=== PATIENT | female | born 1975 | race Caucasian/White ===

== ENCOUNTER 2019-01-02 14:39 | Emergency (ER) | payer OTHER ==
[2016-08-29 14:42] VITALS: BP 140/79
[~2019-01-02] VITALS: Ht 162.6 cm; Wt 107.0 kg
[~2019-01-02 14:39] MED LIST: ACYC200C PO; ALBU2.5V8 IH; ALBU2.5V8 INH; ARIP5TAB13 PO; ASPI325T8 PO; BUDE10.2 IH; BUPR150T15 PO; BUPR300T3 PO; CHOL10002 PO; CLON1TAB11 PO; DICL50TA4 PO; DOCU100C53 PO; EMPA10TA PO; ENOX150D3 SQ; ENOX40DI SQ; ESZO3TAB28 PO; FENO160T PO; FLUT100D IH; GABA600T7 PO; GABA800T5 PO; GLIP10TA13 PO; HYDR-2769 PO; HYDR25TA PO; LEVO112T4 PO; LEVO500T59 PO; LISI-334 PO; METO-239 PO; MONT10TA6 PO; OXYC-316 PO; OXYC1TAB19 PO; PANT40TA5 PO; PARO40TA3 PO; PRAM0.255 PO; PRAZ1CAP2 PO; PRAZ2CAP2 PO; PRED-220 PO; PREG150C PO; PREG50CA PO; PROM25TA10 PO; RIVA10TA PO; RIVA20TA2 PO; SIMV10TA3 PO; TIZA4TAB PO; TRAZ-86 PO; VALA10005 PO; VITA1TAB19 PO; VITA200C28 PO; WARF-31 PO; ZOLP12.52 PO; ZONI100C PO
[2019-01-02 15:30] LABS: BASO # 0.1 x10^3/uL (0.0-0.2); BASO % 1 % (0-3); EOS # 0.2 x10^3/uL (0.0-0.7); EOS % 2 % (0-3); HEMATOCRIT 44.6 % (36.0-47.0); HEMOGLOBIN 15.1 g/dL (12.0-15.5); LYMPH # 3.2 x10^3/uL (1.0-4.8); LYMPH % 35 % (24-48); MEAN CORPUSCULAR HEMOGLOBIN 29 pg (25-35); MEAN CORPUSCULAR HGB CONC 34 g/dL (31-37); MEAN CORPUSCULAR VOLUME 86 fL (79-100); MONO # 0.7 x10^3/uL (0.0-1.1); MONO % 7 % (0-9); NEUT % 55 % (31-73); PLATELET COUNT 309 x10^3/uL (140-400); RED BLOOD COUNT 5.18 x10^6/uL (3.50-5.40); RED CELL DISTRIBUTION WIDTH 14.4 % (11.5-14.5)
--- NOTE | 2019-01-02 15:35 | PHYS DOC ---
Past Medical History Past Medical History: Anxiety, Asthma, Depression, Diabetes-Type II, DVT, Fibromyalgia, GERD, High Cholesterol, Hypertension, Hypothyroid, Kidney Stone, Migraines, MRSA Additional Past Medical Histor: ovarian cyst,mitral valve prolapse,PTSD, PANIC ATTACKS,PE'S, RLS, tachycard Past Surgical History: Cholecystectomy, Hysterectomy, Tonsillectomy, Other Additional Past Surgical Histo: NONMALIGMENT TUMOR BACK OF HEAD REMOVED, OVARIAN CYSTS,Knee surgeries Alcohol Use: None Drug Use: None Adult General Chief Complaint Chief Complaint: CHEST PAIN HPI HPI Patient is a 43 year old female presents to ER today for evaluation of left- sided chest pain started about 1.5 hour ago she was driving. Patient says the pain is sharp, associated with some trouble breathing. Patient said she had history of PE 2 years ago AND the pain is similar to her previous symptom of PE. Patient is on Lovenox for her history of PE. She denies any history of recent travel, no recent operation. Patient is not a smoker, she is not on any control medication. Patient had no history of coronary artery disease. Review of Systems Review of Systems Constitutional: Denies fever or chills [] Eyes: Denies change in visual acuity, redness, or eye pain [] HENT: Denies nasal congestion or sore throat [] Respiratory: Denies cough or POSITIVE FOR Shortness of breath [] Cardiovascular: No additional information not addressed in HPI [] GI: Denies abdominal pain, nausea, vomiting, bloody stools or diarrhea [] : Denies dysuria or hematuria [] Musculoskeletal: Denies back pain or joint pain [] Integument: Denies rash or skin lesions [] Neurologic: Denies headache, focal weakness or sensory changes [] Endocrine: Denies polyuria or polydipsia [] All other systems were reviewed and found to be within normal limits, except as documented in this note. Current Medications Current Medications Current Medications Medications (Trade) Dose Ordered Sig/Poncho Start Time Stop Time Status Last Admin Dose Admin Info (CONTRAST GIVEN -- Rx MONITORING) 1 each PRN DAILY PRN 01/02/19 16:30 01/04/19 16:29 Iohexol (Omnipaque 350 Mg/ml) 100 ml 1X ONCE 01/02/19 16:30 01/02/19 16:31 DC 01/02/19 16:32 100 ML Allergies Allergies Allergies Coded Allergies Type Severity Reaction Last Updated Verified Sulfa (Sulfonamide Antibiotics) Allergy Severe SWELLING OF MOUTH AND HIVES Yes shellfish derived Allergy Severe MOUTH SWELLING AND HIVES 11/04/15 Yes doxycycline Allergy Intermediate HIVES 11/04/15 Yes duloxetine Adverse Reaction Intermediate HYPERTENSION/TACHYCARDIA 11/04/15 Yes hydromorphone Adverse Reaction Intermediate NAUSEA AND VOMITING 11/04/15 Yes imipramine Adverse Reaction Intermediate IRREGULAR HEART BEAT 11/04/15 Yes metformin Adverse Reaction Intermediate ACIDOSIS 02/27/16 Yes nalbuphine Adverse Reaction Intermediate EPISTAXIS 11/04/15 Yes propoxyphene Adverse Reaction Intermediate NAUSEA AND VOMITING 11/04/15 Yes dabigatran etexilate Adverse Reaction Mild Nausea 08/27/16 Yes rivaroxaban Adverse Reaction Mild Nausea and Vomiting 08/27/16 Yes warfarin Adverse Reaction Mild Nausea 08/27/16 Yes Physical Exam Physical Exam Constitutional: Well developed, well nourished, no acute distress, non-toxic appearance. [] HENT: Normocephalic, atraumatic, bilateral external ears normal, oropharynx moist, no oral exudates, nose normal. [] Eyes: PERRLA, EOMI, conjunctiva normal, no discharge. [] Neck: Normal range of motion, no tenderness, supple, no stridor. [] Cardiovascular:Heart rate regular rhythm, no murmur [] Lungs & Thorax: Bilateral breath sounds clear to auscultation [] Abdomen: Bowel sounds normal, soft, no tenderness, no masses, no pulsatile masses. [] Skin: Warm, dry, no erythema, no rash. [] Back: No tenderness, no CVA tenderness. [] Extremities: No tenderness, no cyanosis, no clubbing, ROM intact, no edema. [] Neurologic: Alert and oriented X 3, normal motor function, normal sensory function, no focal deficits noted. [] Psychologic: Affect normal, judgement normal, mood normal. [] Current Patient Data Vital Signs Vital Signs Date Time Temp Pulse Resp B/P (MAP) Pulse Ox O2 Delivery O2 Flow Rate FiO2 01/02/19 14:46 98.7 88 17 135/95 (108) 95 Room Air 98.7 Lab Values Laboratory Tests Test 01/02/19 14:40 01/02/19 16:15 3/19/19 16:21 White Blood Count 9.0 x10^3/uL (4.0-11.0) Red Blood Count 5.18 x10^6/uL (3.50-5.40) Hemoglobin 15.1 g/dL (12.0-15.5) Hematocrit 44.6 % (36.0-47.0) Mean Corpuscular Volume 86 fL (79-100) Mean Corpuscular Hemoglobin 29 pg (25-35) Mean Corpuscular Hemoglobin Concent 34 g/dL (31-37) Red Cell Distribution Width 14.4 % (11.5-14.5) Platelet Count 309 x10^3/uL (140-400) Neutrophils (%) (Auto) 55 % (31-73) Lymphocytes (%) (Auto) 35 % (24-48) Monocytes (%) (Auto) 7 % (0-9) Eosinophils (%) (Auto) 2 % (0-3) Basophils (%) (Auto) 1 % (0-3) Neutrophils # (Auto) 5.0 x10^3uL (1.8-7.7) Lymphocytes # (Auto) 3.2 x10^3/uL (1.0-4.8) Monocytes # (Auto) 0.7 x10^3/uL (0.0-1.1) Eosinophils # (Auto) 0.2 x10^3/uL (0.0-0.7) Basophils # (Auto) 0.1 x10^3/uL (0.0-0.2) Prothrombin Time 13.0 SEC (11.7-14.0) Prothrombin Time INR 1.0 (0.8-1.1) PTT 29 SEC (24-38) D-Dimer (Kirstie) 0.37 ug/mlFEU (0.00-0.50) Sodium Level 143 mmol/L (136-145) Potassium Level 3.9 mmol/L (3.5-5.1) Chloride Level 105 mmol/L (98-107) Carbon Dioxide Level 26 mmol/L (21-32) Anion Gap 12 (6-14) Blood Urea Nitrogen 17 mg/dL (7-20) Creatinine 0.9 mg/dL (0.6-1.0) Estimated GFR (Cockcroft-Gault) 67.7 BUN/Creatinine Ratio 19 (6-20) Glucose Level 214 mg/dL (70-99) H Calcium Level 9.2 mg/dL (8.5-10.1) Magnesium Level 1.8 mg/dL (1.8-2.4) Total Bilirubin 0.3 mg/dL (0.2-1.0) Aspartate Amino Transferase (AST) 22 U/L (15-37) Alanine Aminotransferase (ALT) 35 U/L (14-59) Alkaline Phosphatase 122 U/L (46-116) H Creatine Kinase 125 U/L (26-192) Creatine Kinase MB (Mass) 0.6 ng/mL (0.0-3.6) Creatine Kinase MB Relative Index 0.5 % (0-4) Troponin I Quantitative < 0.017 ng/mL (0.000-0.055) LX-Kdh-H-Type Natriuretic Peptide 19 pg/mL (0-124) Total Protein 8.4 g/dL (6.4-8.2) H Albumin 3.6 g/dL (3.4-5.0) Albumin/Globulin Ratio 0.8 (1.0-1.7) L Lipase 143 U/L (73-393) Urine Collection Type Unknown Urine Color Yellow Urine Clarity Clear Urine pH 5.0 Urine Specific [place] 1.025 Urine Protein Negative mg/dL (NEG-TRACE) Urine Glucose (UA) Negative mg/dL (NEG) Urine Ketones (Stick) Negative mg/dL (NEG) Urine Blood Negative (NEG) Urine Nitrite Negative (NEG) Urine Bilirubin Negative (NEG) Urine Urobilinogen Dipstick 0.2 mg/dL (0.2 mg/dL) Urine Leukocyte Esterase Negative (NEG) Urine RBC 1-2 /HPF (0-2) Urine WBC 5-10 /HPF (0-4) Urine Squamous Epithelial Cells Few /LPF Urine Bacteria Few /HPF (0-FEW) Urine Mucus Marked /LPF POC Urine HCG, Qualitative Hcg negative (Negative) Laboratory Tests 01/02/19 14:40 Laboratory Tests 01/02/19 14:40 EKG EKG EKG was read by this physician at 1450, rate of 79 BPM, SINUS RHYTHM, NO STEMI. [] Radiology/Procedures Radiology/Procedures [][facility] [address] [place], [place] [id number] IMAGING REPORT Signed PATIENT: NISHANT ESTRADA ACCOUNT: [id number] : 1975 LOCATION: ER AGE: 43 SEX: F EXAM STATUS: REG ER ORD. PHYSICIAN: RODNEY PARTIDA DO REASON: CHEST PAIN PROCEDURE: PORTABLE CHEST 1V PORTABLE CHEST 1V Clinical Indication: CHEST PAIN Comparison: AP chest August 27, 2016. Findings: The cardiomediastinal silhouette is normal. Lungs are clear. There is no pneumothorax. No pleural effusion is appreciated. No acute bone abnormality. IMPRESSION: No acute cardiopulmonary process. Electronically signed by: Kamari Barry MD (01/02/2019 3:46 PM) [id number] DICTATED and SIGNED BY: KAMARI BARRY MD DATE: 01/02/19 1546 Course & Med Decision Making Course & Med Decision Making Pertinent Labs and Imaging studies reviewed. (See chart for details) [] Dragon Disclaimer Dragon Disclaimer This electronic medical record was generated, in whole or in part, using a voice recognition dictation system. Departure Departure Impression: Primary Impression: Chest pain Disposition: HOME, SELF-CARE Condition: STABLE Referrals: NASIMA YUAN APRN (PCP) FOLLOW UP WITH YOUR DOCTOR IN 2 DAYS FOR REEVALUATION Patient Instructions: Chest Pain (Nonspecific) RODNEY PARTIDA DO Jan 02, 2019 15:35
[2019-01-02 15:38] LABS: CALCIUM 9.2 mg/dL (8.5-10.1); CREATININE 0.9 mg/dL (0.6-1.0); GFR 67.7; POTASSIUM 3.9 mmol/L (3.5-5.1)
[2019-01-02 15:44] LABS: ALBUMIN 3.6 g/dL (3.4-5.0); ALBUMIN/GLOBULIN RATIO 0.8 (1.0-1.7); MAGNESIUM 1.8 mg/dL (1.8-2.4); TOTAL BILIRUBIN 0.3 mg/dL (0.2-1.0); TOTAL PROTEIN 8.4 g/dL (6.4-8.2)
[2019-01-02 15:45] LABS: D-DIMER 0.37 ug/mlFEU (0.00-0.50)
--- NOTE | 2019-01-02 15:49 | RAD ---
PORTABLE CHEST 1V Clinical Indication: CHEST PAIN Comparison: AP chest August 27, 2016. Findings: The cardiomediastinal silhouette is normal. Lungs are clear. There is no pneumothorax. No pleural effusion is appreciated. No acute bone abnormality. IMPRESSION: No acute cardiopulmonary process. Electronically signed by: Kamari Barry MD (01/02/2019 3:46 PM) [id number]
[2019-01-02 16:29] LABS: BILIRUBIN,URINE NEGATIVE (NEG); CLARITY,URINE CLEAR; COLOR,URINE YELLOW; NITRITE,URINE NEGATIVE (NEG); PROTEIN,URINE NEGATIVE (NEG-TRACE); UROBILINOGEN,URINE 0.2 mg/dL (0.2 mg/dL)
[2019-01-02] MEDS ORDERED: CONTRAST GIVEN. MC PRN (16:30)
[2019-01-02] MEDS: IOHEXOL 350 MG/ML 100 ML VIAL. IV ONE (16:32)
[2019-01-02 16:48] LABS: BACTERIA,URINE FEW /HPF (0-FEW); SQUAMOUS EPITHELIAL CELL,UR FEW /LPF
--- NOTE | 2019-01-02 16:59 | RAD ---
CTA OF THE CHEST WITH AND WITHOUT CONTRAST Clinical indications: Chest pain and shortness of air. History of recurrent pulmonary embolism. Technique: Noncontrast axial localizer was performed. After IV infusion of 100 cc of Omnipaque 350, helical CT scanning of the chest was performed using the CT pulmonary embolism protocol. A coronal MIP reconstruction was generated. PQRS compliance Statement One or more of the following individualized dose reduction techniques were utilized for this study: 1. Automated exposure control 2. Adjustment of the mA and/or kV according to patient size 3. Use of iterative reconstruction technique Comparison: Chest CTA dated August 27, 2016. Findings: No pulmonary embolism is evident. There is ectasia of the ascending aorta measuring up to 4.2 cm in greatest dimension. No intimal flap or dissection is seen otherwise. This is stable. The heart size is within normal limits. No pericardial effusion is seen. No enlarged thoracic lymphadenopathy is evident. No pleural effusion or pneumothorax is seen. No lung mass or consolidative lung infiltrate is seen. The proximal bronchial tree is patent. No lytic process is seen. No adrenal mass is evident. IMPRESSION: No pulmonary embolism. No acute lung infiltrate. Electronically signed by: Josh Gonzales MD (01/02/2019 4:56 PM) [place] [id number]
--- NOTE | 2019-01-03 06:06 | EKG ---
[facility] [address] [place] [address] Test Date: 2019-01-02 Test Time: 14:49:42 Pat Name: NISHANT ESTRADA Department: Room: Gender: F Cardiac Monitor: : 1975 Requested By: RODNEY PARTIDA Order Number: [id number] Reading MD: Sammy Lopez MD Measurements Intervals [place] Rate: 79 P: 16 MI: 164 QRS: -11 QRSD: 88 T: 27 QT: 394 QTc: 453 Interpretive Statements SINUS RHYTHM Electronically Signed On 01-05-2019 16:10:26 CDT by Sammy Lopez MD
== END 2019-01-02 18:20 | disposition home or self-care (01) ==
LOC: ER 14:39
DX: R07.89 Other chest pain (principal); F41.9 Anxiety disorder, unspecified; J45.909 Unspecified asthma, uncomplicated; F32.9 Major depressive disorder, single episode, unspecified; E11.9 Type 2 diabetes mellitus without complications; K21.9 Gastro-esophageal reflux disease without esophagitis; E78.00 Pure hypercholesterolemia, unspecified; I10 Essential (primary) hypertension; E03.9 Hypothyroidism, unspecified; G43.909 Migraine, unspecified, not intractable, without status migrainosus; Z90.49 Acquired absence of other specified parts of digestive tract; Z90.710 Acquired absence of both cervix and uterus; Z90.89 Acquired absence of other organs; Z86.718 Personal history of other venous thrombosis and embolism; Z87.442 Personal history of urinary calculi; Z88.5 Allergy status to narcotic agent; Z88.8 Allergy status to other drugs, medicaments and biological substances; Z88.2 Allergy status to sulfonamides; Z91.013 Allergy to seafood
CPT/HCPCS: 36415; 71045; 71275; 80053; 81001; 81025; 82553; 83690; 83735; 83880; 84484; 85025; 85379; 85610; 85730; 87086; 93005; 99284; Q9967

== ENCOUNTER 2019-01-12 18:20 | Inpatient (IN) | payer OTHER ==
[~2019-01-12] VITALS: Ht 162.6 cm; Wt 103.4 kg
[2019-01-12] MEDS ORDERED: DEXTROSE 50% 25 GM / 50ML DISP.SYRIN. IV PRN (19:00)
[2019-01-12] MEDS ORDERED: ONDANSETRON PF 4 MG/2 ML VIAL. IV PRN (19:00)
[2019-01-12] MEDS ORDERED: IV NORMAL SALINE 1000ML BAG 1,000 ML IV ONE (19:00)
[2019-01-12] MEDS ORDERED: ASPIRIN 325 MG TABLET PO ONE (19:00)
[2019-01-12 19:07] LABS: BASO # 0.1 x10^3/uL (0.0-0.2); BASO % 1 % (0-3); EOS # 0.3 x10^3/uL (0.0-0.7); EOS % 3 % (0-3); HEMATOCRIT 44.1 % (36.0-47.0); HEMOGLOBIN 14.7 g/dL (12.0-15.5); LYMPH # 3.6 x10^3/uL (1.0-4.8); LYMPH % 41 % (24-48); MEAN CORPUSCULAR HEMOGLOBIN 29 pg (25-35); MEAN CORPUSCULAR HGB CONC 33 g/dL (31-37); MEAN CORPUSCULAR VOLUME 86 fL (79-100); MONO # 0.6 x10^3/uL (0.0-1.1); MONO % 7 % (0-9); NEUT # 4.2 x10^3uL (1.8-7.7); NEUT % 48 % (31-73); PLATELET COUNT 283 x10^3/uL (140-400); RED BLOOD COUNT 5.15 x10^6/uL (3.50-5.40); RED CELL DISTRIBUTION WIDTH 14.5 % (11.5-14.5); WHITE BLOOD COUNT 8.7 x10^3/uL (4.0-11.0)
--- NOTE | 2019-01-12 19:22 | PHYS DOC ---
Past Medical History Past Medical History: Anxiety, Asthma, Depression, Diabetes-Type II, DVT, Fibromyalgia, GERD, High Cholesterol, Hypertension, Hypothyroid, Kidney Stone, Migraines, MRSA Additional Past Medical Histor: ovarian cyst,mitral valve prolapse,PTSD, PANIC ATTACKS,PE'S, RLS, tachycard Past Surgical History: Cholecystectomy, Hysterectomy, Tonsillectomy, Other Additional Past Surgical Histo: NONMALIGMENT TUMOR BACK OF HEAD REMOVED, OVARIAN CYSTS,Knee surgeries Alcohol Use: None Drug Use: None Adult General Chief Complaint Chief Complaint: CHEST PAIN HPI HPI Patient is a 43 year old [f__sex] who presents with [] Review of Systems Review of Systems Constitutional: Denies fever or chills [] Eyes: Denies change in visual acuity, redness, or eye pain [] HENT: Denies nasal congestion or sore throat [] Respiratory: Denies cough or shortness of breath [] Cardiovascular: No additional information not addressed in HPI [] GI: Denies abdominal pain, nausea, vomiting, bloody stools or diarrhea [] : Denies dysuria or hematuria [] Musculoskeletal: Denies back pain or joint pain [] Integument: Denies rash or skin lesions [] Neurologic: Denies headache, focal weakness or sensory changes [] Endocrine: Denies polyuria or polydipsia [] All other systems were reviewed and found to be within normal limits, except as documented in this note. Current Medications Current Medications Current Medications Medications (Trade) Dose Ordered Sig/Poncho Start Time Stop Time Status Last Admin Dose Admin Aspirin (Aide Aspirin) 325 mg 1X ONCE 01/12/19 19:00 01/12/19 19:01 DC 01/12/19 19:18 325 MG Dextrose (Dextrose 50%-Water Syringe) 12.5 gm PRN Q15MIN PRN 01/12/19 19:00 Fentanyl Citrate (Fentanyl 2ml Vial) 50 mcg PRN Q2HR PRN 01/12/19 19:00 01/12/19 20:33 50 MCG Ondansetron HCl (Zofran) 4 mg PRN Q8HRS PRN 01/12/19 19:00 01/13/19 18:59 Sodium Chloride 1,000 ml @ 1,000 mls/hr 1X ONCE 01/12/19 19:00 01/12/19 19:59 DC 01/12/19 19:18 1,000 MLS/HR Allergies Allergies Allergies Coded Allergies Type Severity Reaction Last Updated Verified Sulfa (Sulfonamide Antibiotics) Allergy Severe SWELLING OF MOUTH AND HIVES Yes shellfish derived Allergy Severe MOUTH SWELLING AND HIVES 11/04/15 Yes doxycycline Allergy Intermediate HIVES 11/04/15 Yes duloxetine Adverse Reaction Intermediate HYPERTENSION/TACHYCARDIA 11/04/15 Yes hydromorphone Adverse Reaction Intermediate NAUSEA AND VOMITING 11/04/15 Yes imipramine Adverse Reaction Intermediate IRREGULAR HEART BEAT 11/04/15 Yes metformin Adverse Reaction Intermediate ACIDOSIS 02/27/16 Yes nalbuphine Adverse Reaction Intermediate EPISTAXIS 11/04/15 Yes propoxyphene Adverse Reaction Intermediate NAUSEA AND VOMITING 11/04/15 Yes dabigatran etexilate Adverse Reaction Mild Nausea 08/27/16 Yes rivaroxaban Adverse Reaction Mild Nausea and Vomiting 08/27/16 Yes warfarin Adverse Reaction Mild Nausea 08/27/16 Yes Physical Exam Physical Exam Constitutional: Well developed, well nourished, no acute distress, non-toxic appearance. [] HENT: Normocephalic, atraumatic, bilateral external ears normal, oropharynx moist, no oral exudates, nose normal. [] Eyes: PERRLA, EOMI, conjunctiva normal, no discharge. [] Neck: Normal range of motion, no tenderness, supple, no stridor. [] Cardiovascular:Heart rate regular rhythm, no murmur [] Lungs & Thorax: Bilateral breath sounds clear to auscultation [] Abdomen: Bowel sounds normal, soft, no tenderness, no masses, no pulsatile masses. [] Skin: Warm, dry, no erythema, no rash. [] Back: No tenderness, no CVA tenderness. [] Extremities: No tenderness, no cyanosis, no clubbing, ROM intact, no edema. [] Neurologic: Alert and oriented X 3, normal motor function, normal sensory function, no focal deficits noted. [] Psychologic: Affect normal, judgement normal, mood normal. [] Current Patient Data Vital Signs Vital Signs Date Time Temp Pulse Resp B/P (MAP) Pulse Ox O2 Delivery O2 Flow Rate FiO2 01/12/19 19:04 87 19 205/88 (127) 98 Room Air 01/12/19 18:20 97.6 97.6 Lab Values Laboratory Tests Test 01/12/19 18:35 White Blood Count 8.7 x10^3/uL (4.0-11.0) Red Blood Count 5.15 x10^6/uL (3.50-5.40) Hemoglobin 14.7 g/dL (12.0-15.5) Hematocrit 44.1 % (36.0-47.0) Mean Corpuscular Volume 86 fL (79-100) Mean Corpuscular Hemoglobin 29 pg (25-35) Mean Corpuscular Hemoglobin Concent 33 g/dL (31-37) Red Cell Distribution Width 14.5 % (11.5-14.5) Platelet Count 283 x10^3/uL (140-400) Neutrophils (%) (Auto) 48 % (31-73) Lymphocytes (%) (Auto) 41 % (24-48) Monocytes (%) (Auto) 7 % (0-9) Eosinophils (%) (Auto) 3 % (0-3) Basophils (%) (Auto) 1 % (0-3) Neutrophils # (Auto) 4.2 x10^3uL (1.8-7.7) Lymphocytes # (Auto) 3.6 x10^3/uL (1.0-4.8) Monocytes # (Auto) 0.6 x10^3/uL (0.0-1.1) Eosinophils # (Auto) 0.3 x10^3/uL (0.0-0.7) Basophils # (Auto) 0.1 x10^3/uL (0.0-0.2) Prothrombin Time 12.0 SEC (11.7-14.0) Prothrombin Time INR 0.9 (0.8-1.1) Sodium Level 144 mmol/L (136-145) Potassium Level 3.9 mmol/L (3.5-5.1) Chloride Level 106 mmol/L (98-107) Carbon Dioxide Level 26 mmol/L (21-32) Anion Gap 12 (6-14) Blood Urea Nitrogen 13 mg/dL (7-20) Creatinine 0.8 mg/dL (0.6-1.0) Estimated GFR (Cockcroft-Gault) 77.6 BUN/Creatinine Ratio 16 (6-20) Glucose Level 170 mg/dL (70-99) H Calcium Level 9.1 mg/dL (8.5-10.1) Magnesium Level 1.8 mg/dL (1.8-2.4) Total Bilirubin 0.2 mg/dL (0.2-1.0) Aspartate Amino Transferase (AST) 17 U/L (15-37) Alanine Aminotransferase (ALT) 46 U/L (14-59) Alkaline Phosphatase 118 U/L (46-116) H Creatine Kinase 99 U/L (26-192) Creatine Kinase MB (Mass) < 0.5 ng/mL (0.0-3.6) Creatine Kinase MB Relative Index % (0-4) Troponin I Quantitative < 0.017 ng/mL (0.000-0.055) GB-[id number]-Type Natriuretic Peptide 97 pg/mL (0-124) Total Protein 8.0 g/dL (6.4-8.2) Albumin 3.4 g/dL (3.4-5.0) Albumin/Globulin Ratio 0.7 (1.0-1.7) L Lipase 125 U/L (73-393) Laboratory Tests 01/12/19 18:35 Laboratory Tests 01/12/19 18:35 EKG EKG @1829 Sinus rhythm with baseline artifact at 84bpm, NO ST elevation, Radiology/Procedures Radiology/Procedures [] Course & Med Decision Making Course & Med Decision Making Pertinent Labs and Imaging studies reviewed. (See chart for details) [] Dragon Disclaimer Dragon Disclaimer This electronic medical record was generated, in whole or in part, using a voice recognition dictation system. Departure Departure Impression: Primary Impression: Chest pain Disposition: 09 ADMITTED INPATIENT Admitting Physician: Malena Guzman Condition: STABLE Referrals: UNKNOWN PCP NAME (PCP) Problem Qualifiers Primary Impression: Chest pain Chest pain type: unspecified Qualified Codes: R07.9 - Chest pain, unspecified KATYA PINK DO Jan 12, 2019 19:22
[2019-01-12 19:32] LABS: CALCIUM 9.1 mg/dL (8.5-10.1); CREATININE 0.8 mg/dL (0.6-1.0); GFR 77.6; POTASSIUM 3.9 mmol/L (3.5-5.1)
[2019-01-12 19:37] LABS: ALBUMIN 3.4 g/dL (3.4-5.0); ALBUMIN/GLOBULIN RATIO 0.7 (1.0-1.7); MAGNESIUM 1.8 mg/dL (1.8-2.4); TOTAL BILIRUBIN 0.2 mg/dL (0.2-1.0)
[2019-01-12 19:38] LABS: CREATINE KINASE 99 U/L (26-192)
--- NOTE | 2019-01-12 20:18 | RAD ---
EXAM: PA and Lateral Views of the Chest DATE: 01/12/2019 6:57 PM INDICATION: Chest pain COMPARISON: No Prior FINDINGS: The heart is not enlarged. Mediastinal and hilar contours are normal. No focal parenchymal airspace opacity. No pleural effusion or pneumothorax. IMPRESSION: 1. No radiographic evidence for acute cardiopulmonary process. Electronically signed by: Jamey Licona MD (01/12/2019 8:15 PM) [facility]
[2019-01-12] MEDS: fentaNYL PF VIAL 100 MCG/2 ML VIAL IV PRN (20:33)
[2019-01-12 20:45] VITALS: BP 202/86
[2019-01-12] MEDS ORDERED: PANT20TA2 PO (21:33)
[2019-01-12] MEDS ORDERED: GABA-689 PO (21:33)
[2019-01-12] MEDS ORDERED: LISI-334 PO (21:34)
[2019-01-12] MEDS ORDERED: ZONI100C PO (21:34)
[2019-01-12] MEDS ORDERED: INSU100I13 SQ (21:34)
[2019-01-12] MEDS ORDERED: INSU100C4 SQ (21:35)
[2019-01-12] MEDS ORDERED: PROP80TA PO (21:36)
[2019-01-12] MEDS ORDERED: GABA-585 PO (21:37)
[2019-01-12] MEDS ORDERED: GABAPENTIN 100 MG CAPSULE. PO PRN (22:00)
[2019-01-12] MEDS ORDERED: METOPROLOL TARTRATE 5 MG/5 ML VIAL. IVP ONE (22:30)
[2019-01-12] MEDS: hydrOXYzine PAMOATE 25 MG CAPSULE PO SCH (22:40)
[2019-01-12] MEDS: SIMVASTATIN 10 MG TABLET PO SCH (22:40)
[2019-01-12] MEDS: ZOLPIDEM 5 MG TABLET. PO PRN (22:40)
[2019-01-12] MEDS: GABAPENTIN 400 MG CAPSULE. PO SCH (22:40)
[2019-01-12] MEDS: clonazePAM 1 MG TABLET PO SCH (22:40)
[2019-01-12] MEDS: tiZANidine 4 MG TABLET. PO SCH (22:41)
[2019-01-12] MEDS: PRAZOSIN 1 MG CAPSULE. PO SCH (22:42)
[2019-01-12] MEDS: ZONISAMIDE 100 MG CAPSULE. PO SCH (22:42)
[2019-01-12] MEDS: PROPRANOLOL ER 80 MG CAP.ER.24H. PO SCH (22:43)
[2019-01-12] MEDS: INSULIN GLARGINE 300 UNITS/3 ML INSULN.PEN. SQ SCH (22:45)
--- NOTE | 2019-01-12 23:42 | PDOC1 ---
History and Physical Date of Admission Date of Admission DATE: 01/12/19 TIME: 23:42 Identification/Chief Complaint Chief Complaint chest pain Source Source: Chart review, Patient History of Present Illness History of Present Illness Ms. De Leon presented to the ER for the second time this week for chest pain. She was seen in the ER 1 week ago, CT Angio chest was neg, and troponin neg, and sent home. She now returns 1 week later, and the chest pain is worse. She has left sided chest pain that is pressure more than sharp pain, and the pain radiates to her left arm. She has mult anxiety./depression problems, but that has been managed well by [facility] She has a hx of PE, and is on Lovenox, she reports intolerance to all PO options, She sees Dr. Minaya at [facility] for this. She is worried due to her strong family history of heart problmems, her brother at age 37 from CAD and her mom at age 52, CAD and CVA pain is now 4/10 after pain meds, was 9/10 in the ER Past Medical History Cardiovascular: HTN, Hyperlipidemia, Other Pulmonary: Asthma, Bronchitis, Pulmonary embolus, Pneumonia CENTRAL NERVOUS SYSTEM: Other GI: GERD, Peptic Ulcer disease Heme/Onc: Anemia NOS Hepatobiliary: No pertinent hx Psych: Anxiety, Depression Musculoskeletal: Osteoarthritis Rheumatologic: Fibromyalgia Infectious disease: No pertinent hx Renal/: Other Endocrine: Diabetes Past Surgical History Past Surgical History: Cholecystectomy, Tonsillectomy, Hysterectomy Family History Family History: Diabetes, Heart Disease, High Cholestrol, Hypertension, Stroke Social History Smoke: No ALCOHOL: none Drugs: None Current Problem List Problem List Problems Medical Problems: (1) Chest pain Status: Acute Current Medications Current Medications Current Medications Aspirin (Aide Aspirin) 325 mg 1X ONCE PO Last administered on 01/12/19at 19:18 ; Start 01/12/19 at 19:00; Stop 01/12/19 at 19:01; Status DC Sodium Chloride 1,000 ml @ 1,000 mls/hr 1X ONCE IV Last administered on at 19:18; Start 01/12/19 at 19:00; Stop 01/12/19 at 19:59; Status DC Ondansetron HCl (Zofran) 4 mg PRN Q8HRS PRN IV NAUSEA/VOMITING; Start 01/12/19 at 19:00; Stop 01/13/19 at 18:59 Fentanyl Citrate (Fentanyl 2ml Vial) 50 mcg PRN Q2HR PRN IV PAIN Last administered on 01/12/19at 20:33; Start 01/12/19 at 19:00 Insulin Human Lispro (HumaLOG) 0-5 UNITS TIDWMEALS SQ ; Start 01/13/19 at 08:00 Dextrose (Dextrose 50%-Water Syringe) 12.5 gm PRN Q15MIN PRN IV SEE COMMENTS; Start 01/12/19 at 19:00 Aripiprazole (Abilify) 10 mg DAILY PO ; Start 01/13/19 at 09:00 Aspirin (Aide Aspirin) 325 mg DAILY PO ; Start 01/13/19 at 09:00 Clonazepam (KlonoPIN) 1 mg TID PO Last administered on 01/12/19at 22:40; Start 01/12/19 at 22:30 Enoxaparin Sodium (Lovenox 120mg Syringe) 120 mg QHS SQ Last administered on at 22:43; Start 01/12/19 at 23:00 Gabapentin (Neurontin) 100 mg PRN TID PRN PO NEUROPATHIC PAIN; Start 01/12/19 at 22:00 Gabapentin (Neurontin) 400 mg TID PO Last administered on 01/12/19at 22:40; Start 01/12/19 at 22:30 Insulin Glargine (Lantus) 50 units QHS SQ Last administered on 01/12/19at 22:45 ; Start 01/12/19 at 22:30 Levothyroxine Sodium (Synthroid) 112 mcg DAILY06 PO ; Start 01/13/19 at 06:00 Lisinopril (Prinivil) 20 mg DAILY PO ; Start 01/13/19 at 09:00 Simvastatin (Zocor) 10 mg HS PO Last administered on 01/12/19at 22:40; Start at 22:30 Bupropion HCl (Wellbutrin Xl) 150 mg DAILY PO ; Start 01/13/19 at 09:00 Hydroxyzine Pamoate (Vistaril) 50 mg BID PO Last administered on 01/12/19at 22: 40; Start 01/12/19 at 22:30 Insulin Human Lispro (HumaLOG) 15 units TIDWMEALS SQ ; Start 01/13/19 at 08:00 Pantoprazole Sodium (Protonix) 40 mg DAILYAC PO ; Start 01/13/19 at 07:30 Prazosin HCl (Minipress) 4 mg QHS PO Last administered on 01/12/19at 22:42; Start 01/12/19 at 23:00 Propranolol HCl (Inderal La) 80 mg QHS PO Last administered on 01/12/19 22:43 ; Start 01/12/19 at 23:00 Tizanidine HCl (Zanaflex) 4 mg TID PO Last administered on 01/12/19 22:41; Start 01/12/19 at 22:30 Zolpidem Tartrate (Ambien) 5 mg PRN QHS PRN PO INSOMNIA, MAY REPEAT X1 Last administered on 01/12/19 22:40; Start 01/12/19 at 22:15 Zonisamide (Zonegran) 300 mg QHS PO Last administered on 01/12/19 22:42; Start 01/12/19 at 23:00 Metoprolol Tartrate (Lopressor Vial) 5 mg 1X ONCE IVP Last administered on at 22:46; Start 01/12/19 at 22:30; Stop 01/12/19 at 22:31; Status DC Active Scripts Active Reported Gabapentin (Gabapentin) 100 Mg Capsule 100 Mg PO TID PRN Propranolol Hcl 80 Mg Tablet 80 Mg PO HS Novolog (Insulin Aspart) 100 Unit/1 Ml Cartridge 15 Unit SQ TIDWMEALS Lantus Solostar (Insulin Glargine,Hum.rec.anlog) 100 Unit/1 Ml Insuln.pen 50 Unit SQ QHS Lisinopril 20 Mg Tablet 1 Tab PO DAILY Zonisamide 100 Mg Capsule 300 Mg PO HS Protonix (Pantoprazole Sodium) 20 Mg Tablet.dr 2 Tab PO DAILY Gabapentin (Gabapentin) 400 Mg Capsule 400 Mg PO TID Ambien Cr (Zolpidem Tartrate) 12.5 Mg Tab.mphase 10 Tab PO QHS PRN Aspirin 325 Mg Tablet 1 Tab PO DAILY Enoxaparin Sodium 150 Mg/1 Ml Disp.syrin 120 Mg SQ HS Prazosin Hcl 2 Mg Capsule 2 Cap PO QHS Hydroxyzine Hcl 25 Mg Tablet 2 Tab PO BID Wellbutrin Xl (Bupropion Hcl) 300 Mg Tab.er.24h 150 Mg PO DAILY Abilify (Aripiprazole) 5 Mg Tablet 2 Tab PO DAILY Tizanidine Hcl 4 Mg Tablet 4 Mg PO TID Simvastatin 10 Mg Tablet 10 Mg PO HS Levothyroxine Sodium 112 Mcg Tablet 112 Mcg PO DAILY Clonazepam 1 Mg Tablet 1 Tab PO TID Allergies Allergies: Coded Allergies: Sulfa (Sulfonamide Antibiotics) (Verified Allergy, Severe, SWELLING OF MOUTH AND HIVES, 11/04/15) shellfish derived (Verified Allergy, Severe, MOUTH SWELLING AND HIVES, ) doxycycline (Verified Allergy, Intermediate, HIVES, 11/04/15) duloxetine (Verified Adverse Reaction, Intermediate, HYPERTENSION/ TACHYCARDIA, 11/04/15) hydromorphone (Verified Adverse Reaction, Intermediate, NAUSEA AND VOMITING, 11/04/15) imipramine (Verified Adverse Reaction, Intermediate, IRREGULAR HEART BEAT , 11/04/15) metformin (Verified Adverse Reaction, Intermediate, ACIDOSIS, 02/27/16) nalbuphine (Verified Adverse Reaction, Intermediate, EPISTAXIS, 11/04/15) propoxyphene (Verified Adverse Reaction, Intermediate, NAUSEA AND VOMITING , 11/04/15) dabigatran etexilate (Verified Adverse Reaction, Mild, Nausea, 08/27/16) rivaroxaban (Verified Adverse Reaction, Mild, Nausea and Vomiting, ) warfarin (Verified Adverse Reaction, Mild, Nausea, 08/27/16) ROS General: YES: Fatigue, Malaise; No: Chills, Night Sweats, Appetite, Other PSYCHOLOGICAL ROS: YES: Anxiety; No: Behavioral Disorder, Concentration difficultie, Decreased libido, Depression, Disorientation, Hallucinations, Hostility, Irritablity, Memory difficulties, Mood Swings, Obsessive thoughts, Other Eyes: No Blurry vision, No Decreased vision, No Double vision, No Dry eyes, No Excessive tearing, No Eye Pain, No Itchy Eyes, No Loss of vision, No Photophobia , No Scotomata, No Uses contacts, No Uses glasses, No Other HEENT: No: Heacaches, Visual Changes, Hearing change, Nasal congestion, Nasal discharge, Oral lesions, Sinus pain, Sore Throat, Epistaxis, Sneezing, Snoring, Tinnitus, Vertigo, Vocal changes, Other Respiratory: YES: SOB with excertion; No: Cough, Hemoptysis, Orthopnea, Pleuritic Pain, Shortness of breath, Sputum Changes, Stridor, Tachypnea, Wheezing, Other Cardiovascular: yes Chest Pain Gastrointestinal: Yes Nausea; No Vomiting, No Abdominal Pain, No Diarrhea, No Constipation, No Melena, No Hematochezia, No Other Genitourinary: No Dysuria, No Frequency, No Incontinence, No Hematuria, No Retention, No Discharge, No Urgency, No Pain, No Flank Pain, No Other, No , No , No , No , No , No , No Musculoskeletal: No Gait Disturbance, No Joint Pain, No Joint Stiffness, No Joint Swelling, No Muscle Pain, No Muscular Weakness, No Pain In:, No Swelling In:, No Other Neurological: No Behavorial Changes, No Bowel/Bladder ControlChng, No Confusion , No Dizziness, No Gait Disturbance, No Headaches, No Impaired Coord/balance, No Memory Loss, No Numbness/Tingling, No Seizures, No Speech Problems, No Tremors, No Visual Changes, No Weakness, No Other Skin: No Dry Skin, No Eczema, No Hair Changes, No Lumps, No Mole Changes, No Mottling, No Nail Changes, No Pruritus, No Rash, No Skin Lesion Changes, No Other, No Acne Physical Exam General: Alert, Oriented X3, Cooperative, mild distress HEENT: Atraumatic, PERRLA, EOMI, Mucous membr. moist/pink Lungs: Clear to auscultation, Normal air movement Heart: S1S2, no gallops Abdomen: Soft (obese), No tenderness Extremities: No clubbing, No edema, Normal pulses Skin: No rashes Neuro: Normal speech, Normal tone Psych/Mental Status: Mental status NL, Mood NL Vitals Vitals Vital Signs Date Time Temp Pulse Resp B/P (MAP) Pulse Ox O2 Delivery O2 Flow Rate FiO2 01/12/19 23:17 Room Air 01/12/19 22:46 92 205/87 01/12/19 21:10 16 01/12/19 20:45 98.0 97 98.0 Labs Labs Laboratory Tests Test 01/12/19 18:35 01/12/19 21:50 01/12/19 22:18 White Blood Count 8.7 x10^3/uL (4.0-11.0) Red Blood Count 5.15 x10^6/uL (3.50-5.40) Hemoglobin 14.7 g/dL (12.0-15.5) Hematocrit 44.1 % (36.0-47.0) Mean Corpuscular Volume 86 fL (79-100) Mean Corpuscular Hemoglobin 29 pg (25-35) Mean Corpuscular Hemoglobin Concent 33 g/dL (31-37) Red Cell Distribution Width 14.5 % (11.5-14.5) Platelet Count 283 x10^3/uL (140-400) Neutrophils (%) (Auto) 48 % (31-73) Lymphocytes (%) (Auto) 41 % (24-48) Monocytes (%) (Auto) 7 % (0-9) Eosinophils (%) (Auto) 3 % (0-3) Basophils (%) (Auto) 1 % (0-3) Neutrophils # (Auto) 4.2 x10^3uL (1.8-7.7) Lymphocytes # (Auto) 3.6 x10^3/uL (1.0-4.8) Monocytes # (Auto) 0.6 x10^3/uL (0.0-1.1) Eosinophils # (Auto) 0.3 x10^3/uL (0.0-0.7) Basophils # (Auto) 0.1 x10^3/uL (0.0-0.2) Prothrombin Time 12.0 SEC (11.7-14.0) Prothromb Time International Ratio 0.9 (0.8-1.1) Sodium Level 144 mmol/L (136-145) Potassium Level 3.9 mmol/L (3.5-5.1) Chloride Level 106 mmol/L (98-107) Carbon Dioxide Level 26 mmol/L (21-32) Anion Gap 12 (6-14) Blood Urea Nitrogen 13 mg/dL (7-20) Creatinine 0.8 mg/dL (0.6-1.0) Estimated GFR (Cockcroft-Gault) 77.6 BUN/Creatinine Ratio 16 (6-20) Glucose Level 170 mg/dL (70-99) Calcium Level 9.1 mg/dL (8.5-10.1) Magnesium Level 1.8 mg/dL (1.8-2.4) Total Bilirubin 0.2 mg/dL (0.2-1.0) Aspartate Amino Transf (AST/SGOT) 17 U/L (15-37) Alanine Aminotransferase (ALT/SGPT) 46 U/L (14-59) Alkaline Phosphatase 118 U/L (46-116) Creatine Kinase 99 U/L (26-192) Creatine Kinase MB (Mass) < 0.5 ng/mL (0.0-3.6) Creatine Kinase MB Relative Index % (0-4) Troponin I Quantitative < 0.017 ng/mL (0.000-0.055) < 0.017 ng/mL (0.000-0.055) BJ-Pfw-Q-Type Natriuretic Peptide 97 pg/mL (0-124) Total Protein 8.0 g/dL (6.4-8.2) Albumin 3.4 g/dL (3.4-5.0) Albumin/Globulin Ratio 0.7 (1.0-1.7) Lipase 125 U/L (73-393) Glucose (Fingerstick) 167 mg/dL (70-99) Laboratory Tests Test 01/12/19 18:35 01/12/19 21:50 01/12/19 22:18 White Blood Count 8.7 x10^3/uL (4.0-11.0) Red Blood Count 5.15 x10^6/uL (3.50-5.40) Hemoglobin 14.7 g/dL (12.0-15.5) Hematocrit 44.1 % (36.0-47.0) Mean Corpuscular Volume 86 fL (79-100) Mean Corpuscular Hemoglobin 29 pg (25-35) Mean Corpuscular Hemoglobin Concent 33 g/dL (31-37) Red Cell Distribution Width 14.5 % (11.5-14.5) Platelet Count 283 x10^3/uL (140-400) Neutrophils (%) (Auto) 48 % (31-73) Lymphocytes (%) (Auto) 41 % (24-48) Monocytes (%) (Auto) 7 % (0-9) Eosinophils (%) (Auto) 3 % (0-3) Basophils (%) (Auto) 1 % (0-3) Neutrophils # (Auto) 4.2 x10^3uL (1.8-7.7) Lymphocytes # (Auto) 3.6 x10^3/uL (1.0-4.8) Monocytes # (Auto) 0.6 x10^3/uL (0.0-1.1) Eosinophils # (Auto) 0.3 x10^3/uL (0.0-0.7) Basophils # (Auto) 0.1 x10^3/uL (0.0-0.2) Prothrombin Time 12.0 SEC (11.7-14.0) Prothromb Time International Ratio 0.9 (0.8-1.1) Sodium Level 144 mmol/L (136-145) Potassium Level 3.9 mmol/L (3.5-5.1) Chloride Level 106 mmol/L (98-107) Carbon Dioxide Level 26 mmol/L (21-32) Anion Gap 12 (6-14) Blood Urea Nitrogen 13 mg/dL (7-20) Creatinine 0.8 mg/dL (0.6-1.0) Estimated GFR (Cockcroft-Gault) 77.6 BUN/Creatinine Ratio 16 (6-20) Glucose Level 170 mg/dL (70-99) Calcium Level 9.1 mg/dL (8.5-10.1) Magnesium Level 1.8 mg/dL (1.8-2.4) Total Bilirubin 0.2 mg/dL (0.2-1.0) Aspartate Amino Transf (AST/SGOT) 17 U/L (15-37) Alanine Aminotransferase (ALT/SGPT) 46 U/L (14-59) Alkaline Phosphatase 118 U/L (46-116) Creatine Kinase 99 U/L (26-192) Creatine Kinase MB (Mass) < 0.5 ng/mL (0.0-3.6) Creatine Kinase MB Relative Index % (0-4) Troponin I Quantitative < 0.017 ng/mL (0.000-0.055) < 0.017 ng/mL (0.000-0.055) PL-Xfp-V-Type Natriuretic Peptide 97 pg/mL (0-124) Total Protein 8.0 g/dL (6.4-8.2) Albumin 3.4 g/dL (3.4-5.0) Albumin/Globulin Ratio 0.7 (1.0-1.7) Lipase 125 U/L (73-393) Glucose (Fingerstick) 167 mg/dL (70-99) VTE Prophylaxis Ordered VTE Prophylaxis Devices: Yes VTE Pharmacological Prophylaxi: Yes Assessment/Plan Assessment/Plan chest pain, angina, with pressure and left shoulder pain to arm anxiety and depression obesity BMI 40 htn, mult agents, poss some diastolic dysfuntion mult allergies admit WILLY DELANEY MD Jan 12, 2019 23:42
[2019-01-13] VITALS (7 sets, daily range): BP systolic 114–189; BP diastolic 76–96
[2019-01-13] MEDS ORDERED: SUMAtriptan SUCCINATE 25 MG TABLET PO PRN (03:00)
[2019-01-13] MEDS: LEVOTHYROXINE 112 MCG TABLET PO SCH (06:26)
[2019-01-13] MEDS: PANTOPRAZOLE 40 MG TABLET.DR. PO SCH (07:19)
[2019-01-13] MEDS: INSULIN LISPRO 300 UNITS/3 ML INSULN.PEN. SQ SCH ×6 (08:00→17:20)
[2019-01-13] MEDS: buPROPion XL 150 MG TAB.ER.24H. PO SCH (09:00)
[2019-01-13] MEDS: LISINOPRIL 20 MG TABLET PO SCH (09:00)
[2019-01-13] MEDS: GABAPENTIN 400 MG CAPSULE. PO SCH ×3 (09:00→21:10)
[2019-01-13] MEDS: hydrOXYzine PAMOATE 25 MG CAPSULE PO SCH ×2 (09:00→21:11)
[2019-01-13] MEDS: tiZANidine 4 MG TABLET. PO SCH ×3 (09:00→21:11)
[2019-01-13] MEDS: ASPIRIN 325 MG TABLET PO SCH (09:00)
[2019-01-13] MEDS: clonazePAM 1 MG TABLET PO SCH ×3 (09:00→21:11)
[2019-01-13] MEDS: ARIPiprazole 5 MG TABLET PO SCH (09:00)
--- NOTE | 2019-01-13 09:22 | EKG ---
[facility] [address] [place] [address] Test Date: 2019-01-12 Test Time: 18:29:30 Pat Name: NISHANT ESTRADA Department: Room: 248 1 Gender: F Crusher: : 1975 Requested By: KATYA PINK Order Number: [id number] Reading MD: Sammy Lopez MD Measurements Intervals [place] Rate: 83 P: 88 AK: 170 QRS: -12 QRSD: 90 T: 12 QT: 350 QTc: 416 Interpretive Statements SINUS RHYTHM NON-SPECIFIC ST/T CHANGES BASELINE ARTIFACT Electronically Signed On 01-15-2019 14:27:12 CDT by Sammy Lopez MD
[2019-01-13] MEDS: NITROGLYCERIN SUBLINGUAL 0.4 MG BOTTLE OF 25. SL PRN ×2 (10:06→10:15)
--- NOTE | 2019-01-13 10:07 | EKG ---
[facility] [address] [place] [address] Test Date: 2019-01-13 Test Time: 10:02:16 Pat Name: NISHANT ESTRADA Department: Room: 248 1 Gender: F Tromper: EKRT : 1975 Requested By: WLILY DELANEY Order Number: [id number] Reading MD: Sammy Lopez MD Measurements Intervals [place] Rate: 73 P: 22 MN: 174 QRS: -9 QRSD: 94 T: 14 QT: 432 QTc: 480 Interpretive Statements SINUS RHYTHM NON-SPECIFIC ST/T CHANGES PROLONGED QT Electronically Signed On 01-15-2019 14:30:12 CDT by Sammy Lopez MD
[2019-01-13] MEDS: fentaNYL PF VIAL 100 MCG/2 ML VIAL IV PRN ×2 (10:28→23:17)
--- NOTE | 2019-01-13 10:47 | PDOC ---
PROGRESS NOTES Chief Complaint Chief Complaint presented to the ER for the second time this week for chest pain. She was seen in the ER 1 week ago, CT Angio chest was neg, and troponin neg, and sent home. She now returns 1 week later, and the chest pain is worse. She has left sided chest pain that is pressure more than sharp pain, and the pain radiates to her left arm. She has mult anxiety./depression problems, but that has been managed well by [facility] She has a hx of PE, and is on Lovenox, she reports intolerance to all PO options, She sees Dr. Minaya at [facility] for this. strong family history of heart problmems, her brother at age 37 from CAD and her mom at age 52, CAD and CVA pain was 9/10 in the ER plan admit 2-D echo to assess LV function and rule out wall motion abnormalities. serial troponin i home meds low sodium diet History of Present Illness History of Present Illness Assessment/Plan Assessment/Plan chest pain, angina, with pressure and left shoulder pain to arm anxiety and depression obesity BMI 40 htn, mult agents, poss some diastolic dysfuntion mult allergies admit cvc monitoring serial troponin i cardiology consult home meds Vitals Vitals Vital Signs Date Time Temp Pulse Resp B/P (MAP) Pulse Ox O2 Delivery O2 Flow Rate FiO2 01/13/19 10:28 99 Nasal Cannula 3.0 01/13/19 10:23 97.6 78 22 153/81 (105) 97.6 Physical Exam General: Alert, Oriented X3, Cooperative, No acute distress Heart: Regular rate, Normal S1, No murmurs Lungs: Clear Abdomen: Soft (obese), No tenderness Extremities: No clubbing, No cyanosis, No edema, Normal pulses Skin: No rashes Labs LABS EXAM: PA and Lateral Views of the Chest DATE: 01/12/2019 6:57 PM INDICATION: Chest pain COMPARISON: No Prior FINDINGS: The heart is not enlarged. Mediastinal and hilar contours are normal. No focal parenchymal airspace opacity. No pleural effusion or pneumothorax. IMPRESSION: 1. No radiographic evidence for acute cardiopulmonary process. Electronically signed by: Jamey Licona MD (01/12/2019 8:15 PM) [facility] DICTATED and SIGNED BY: JAMEY LICONA MD DATE: 01/12/192014 Laboratory Tests Test 01/12/19 18:35 01/12/19 21:50 01/12/19 22:18 01/13/19 00:40 White Blood Count 8.7 x10^3/uL (4.0-11.0) Red Blood Count 5.15 x10^6/uL (3.50-5.40) Hemoglobin 14.7 g/dL (12.0-15.5) Hematocrit 44.1 % (36.0-47.0) Mean Corpuscular Volume 86 fL (79-100) Mean Corpuscular Hemoglobin 29 pg (25-35) Mean Corpuscular Hemoglobin Concent 33 g/dL (31-37) Red Cell Distribution Width 14.5 % (11.5-14.5) Platelet Count 283 x10^3/uL (140-400) Neutrophils (%) (Auto) 48 % (31-73) Lymphocytes (%) (Auto) 41 % (24-48) Monocytes (%) (Auto) 7 % (0-9) Eosinophils (%) (Auto) 3 % (0-3) Basophils (%) (Auto) 1 % (0-3) Neutrophils # (Auto) 4.2 x10^3uL (1.8-7.7) Lymphocytes # (Auto) 3.6 x10^3/uL (1.0-4.8) Monocytes # (Auto) 0.6 x10^3/uL (0.0-1.1) Eosinophils # (Auto) 0.3 x10^3/uL (0.0-0.7) Basophils # (Auto) 0.1 x10^3/uL (0.0-0.2) Prothrombin Time 12.0 SEC (11.7-14.0) Prothromb Time International Ratio 0.9 (0.8-1.1) Sodium Level 144 mmol/L (136-145) Potassium Level 3.9 mmol/L (3.5-5.1) Chloride Level 106 mmol/L (98-107) Carbon Dioxide Level 26 mmol/L (21-32) Anion Gap 12 (6-14) Blood Urea Nitrogen 13 mg/dL (7-20) Creatinine 0.8 mg/dL (0.6-1.0) Estimated GFR (Cockcroft-Gault) 77.6 BUN/Creatinine Ratio 16 (6-20) Glucose Level 170 mg/dL (70-99) Calcium Level 9.1 mg/dL (8.5-10.1) Magnesium Level 1.8 mg/dL (1.8-2.4) Total Bilirubin 0.2 mg/dL (0.2-1.0) Aspartate Amino Transf (AST/SGOT) 17 U/L (15-37) Alanine Aminotransferase (ALT/SGPT) 46 U/L (14-59) Alkaline Phosphatase 118 U/L (46-116) Creatine Kinase 99 U/L (26-192) Creatine Kinase MB (Mass) < 0.5 ng/mL (0.0-3.6) Creatine Kinase MB Relative Index % (0-4) Troponin I Quantitative < 0.017 ng/mL (0.000-0.055) < 0.017 ng/mL (0.000-0.055) < 0.017 ng/mL (0.000-0.055) KG-Bta-O-Type Natriuretic Peptide 97 pg/mL (0-124) Total Protein 8.0 g/dL (6.4-8.2) Albumin 3.4 g/dL (3.4-5.0) Albumin/Globulin Ratio 0.7 (1.0-1.7) Lipase 125 U/L (73-393) Glucose (Fingerstick) 167 mg/dL (70-99) Test 01/13/19 07:30 Glucose (Fingerstick) 148 mg/dL (70-99) Assessment and Plan Assessmemt and Plan Problems Medical Problems: (1) Chest pain Status: Acute Comment Review of Relevant I have reviewed the following items colin (where applicable) has been applied. Labs Laboratory Tests Test 01/12/19 18:35 01/12/19 21:50 01/12/19 22:18 01/13/19 00:40 White Blood Count 8.7 x10^3/uL (4.0-11.0) Red Blood Count 5.15 x10^6/uL (3.50-5.40) Hemoglobin 14.7 g/dL (12.0-15.5) Hematocrit 44.1 % (36.0-47.0) Mean Corpuscular Volume 86 fL (79-100) Mean Corpuscular Hemoglobin 29 pg (25-35) Mean Corpuscular Hemoglobin Concent 33 g/dL (31-37) Red Cell Distribution Width 14.5 % (11.5-14.5) Platelet Count 283 x10^3/uL (140-400) Neutrophils (%) (Auto) 48 % (31-73) Lymphocytes (%) (Auto) 41 % (24-48) Monocytes (%) (Auto) 7 % (0-9) Eosinophils (%) (Auto) 3 % (0-3) Basophils (%) (Auto) 1 % (0-3) Neutrophils # (Auto) 4.2 x10^3uL (1.8-7.7) Lymphocytes # (Auto) 3.6 x10^3/uL (1.0-4.8) Monocytes # (Auto) 0.6 x10^3/uL (0.0-1.1) Eosinophils # (Auto) 0.3 x10^3/uL (0.0-0.7) Basophils # (Auto) 0.1 x10^3/uL (0.0-0.2) Prothrombin Time 12.0 SEC (11.7-14.0) Prothromb Time International Ratio 0.9 (0.8-1.1) Sodium Level 144 mmol/L (136-145) Potassium Level 3.9 mmol/L (3.5-5.1) Chloride Level 106 mmol/L (98-107) Carbon Dioxide Level 26 mmol/L (21-32) Anion Gap 12 (6-14) Blood Urea Nitrogen 13 mg/dL (7-20) Creatinine 0.8 mg/dL (0.6-1.0) Estimated GFR (Cockcroft-Gault) 77.6 BUN/Creatinine Ratio 16 (6-20) Glucose Level 170 mg/dL (70-99) Calcium Level 9.1 mg/dL (8.5-10.1) Magnesium Level 1.8 mg/dL (1.8-2.4) Total Bilirubin 0.2 mg/dL (0.2-1.0) Aspartate Amino Transf (AST/SGOT) 17 U/L (15-37) Alanine Aminotransferase (ALT/SGPT) 46 U/L (14-59) Alkaline Phosphatase 118 U/L (46-116) Creatine Kinase 99 U/L (26-192) Creatine Kinase MB (Mass) < 0.5 ng/mL (0.0-3.6) Creatine Kinase MB Relative Index % (0-4) Troponin I Quantitative < 0.017 ng/mL (0.000-0.055) < 0.017 ng/mL (0.000-0.055) < 0.017 ng/mL (0.000-0.055) YA-Tzg-O-Type Natriuretic Peptide 97 pg/mL (0-124) Total Protein 8.0 g/dL (6.4-8.2) Albumin 3.4 g/dL (3.4-5.0) Albumin/Globulin Ratio 0.7 (1.0-1.7) Lipase 125 U/L (73-393) Glucose (Fingerstick) 167 mg/dL (70-99) Test 01/13/19 07:30 Glucose (Fingerstick) 148 mg/dL (70-99) Laboratory Tests Test 01/12/19 18:35 01/12/19 21:50 01/12/19 22:18 01/13/19 00:40 White Blood Count 8.7 x10^3/uL (4.0-11.0) Red Blood Count 5.15 x10^6/uL (3.50-5.40) Hemoglobin 14.7 g/dL (12.0-15.5) Hematocrit 44.1 % (36.0-47.0) Mean Corpuscular Volume 86 fL (79-100) Mean Corpuscular Hemoglobin 29 pg (25-35) Mean Corpuscular Hemoglobin Concent 33 g/dL (31-37) Red Cell Distribution Width 14.5 % (11.5-14.5) Platelet Count 283 x10^3/uL (140-400) Neutrophils (%) (Auto) 48 % (31-73) Lymphocytes (%) (Auto) 41 % (24-48) Monocytes (%) (Auto) 7 % (0-9) Eosinophils (%) (Auto) 3 % (0-3) Basophils (%) (Auto) 1 % (0-3) Neutrophils # (Auto) 4.2 x10^3uL (1.8-7.7) Lymphocytes # (Auto) 3.6 x10^3/uL (1.0-4.8) Monocytes # (Auto) 0.6 x10^3/uL (0.0-1.1) Eosinophils # (Auto) 0.3 x10^3/uL (0.0-0.7) Basophils # (Auto) 0.1 x10^3/uL (0.0-0.2) Prothrombin Time 12.0 SEC (11.7-14.0) Prothromb Time International Ratio 0.9 (0.8-1.1) Sodium Level 144 mmol/L (136-145) Potassium Level 3.9 mmol/L (3.5-5.1) Chloride Level 106 mmol/L (98-107) Carbon Dioxide Level 26 mmol/L (21-32) Anion Gap 12 (6-14) Blood Urea Nitrogen 13 mg/dL (7-20) Creatinine 0.8 mg/dL (0.6-1.0) Estimated GFR (Cockcroft-Gault) 77.6 BUN/Creatinine Ratio 16 (6-20) Glucose Level 170 mg/dL (70-99) Calcium Level 9.1 mg/dL (8.5-10.1) Magnesium Level 1.8 mg/dL (1.8-2.4) Total Bilirubin 0.2 mg/dL (0.2-1.0) Aspartate Amino Transf (AST/SGOT) 17 U/L (15-37) Alanine Aminotransferase (ALT/SGPT) 46 U/L (14-59) Alkaline Phosphatase 118 U/L (46-116) Creatine Kinase 99 U/L (26-192) Creatine Kinase MB (Mass) < 0.5 ng/mL (0.0-3.6) Creatine Kinase MB Relative Index % (0-4) Troponin I Quantitative < 0.017 ng/mL (0.000-0.055) < 0.017 ng/mL (0.000-0.055) < 0.017 ng/mL (0.000-0.055) MI-Qfa-Y-Type Natriuretic Peptide 97 pg/mL (0-124) Total Protein 8.0 g/dL (6.4-8.2) Albumin 3.4 g/dL (3.4-5.0) Albumin/Globulin Ratio 0.7 (1.0-1.7) Lipase 125 U/L (73-393) Glucose (Fingerstick) 167 mg/dL (70-99) Test 01/13/19 07:30 Glucose (Fingerstick) 148 mg/dL (70-99) Medications Current Medications Aspirin ([employer] Aspirin) 325 mg 1X ONCE PO Last administered on 01/12/19 19:18 ; Start 01/12/19 at 19:00; Stop 01/12/19 at 19:01; Status DC Sodium Chloride 1,000 ml @ 1,000 mls/hr 1X ONCE IV Last administered on at 19:18; Start 01/12/19 at 19:00; Stop 01/12/19 at 19:59; Status DC Ondansetron HCl (Zofran) 4 mg PRN Q8HRS PRN IV NAUSEA/VOMITING; Start 01/12/19 at 19:00; Stop 01/13/19 at 18:59 Fentanyl Citrate (Fentanyl 2ml Vial) 50 mcg PRN Q2HR PRN IV PAIN Last administered on 01/13/19at 10:28; Start 01/12/19 at 19:00 Insulin Human Lispro (HumaLOG) 0-5 UNITS TIDWMEALS SQ ; Start 01/13/19 at 08:00 Dextrose (Dextrose 50%-Water Syringe) 12.5 gm PRN Q15MIN PRN IV SEE COMMENTS; Start 01/12/19 at 19:00 Aripiprazole (Abilify) 10 mg DAILY PO ; Start 01/13/19 at 09:00 Aspirin (Aide Aspirin) 325 mg DAILY PO ; Start 01/13/19 at 09:00 Clonazepam (KlonoPIN) 1 mg TID PO Last administered on 01/12/19at 22:40; Start 01/12/19 at 22:30 Enoxaparin Sodium (Lovenox 120mg Syringe) 120 mg QHS SQ Last administered on at 22:43; Start 01/12/19 at 23:00 Gabapentin (Neurontin) 100 mg PRN TID PRN PO NEUROPATHIC PAIN; Start 01/12/19 at 22:00 Gabapentin (Neurontin) 400 mg TID PO Last administered on 01/12/19at 22:40; Start 01/12/19 at 22:30 Insulin Glargine (Lantus) 50 units QHS SQ Last administered on 01/12/19at 22:45 ; Start 01/12/19 at 22:30 Levothyroxine Sodium (Synthroid) 112 mcg DAILY06 PO Last administered on 06:26; Start 01/13/19 at 06:00 Lisinopril (Prinivil) 20 mg DAILY PO ; Start 01/13/19 at 09:00 Simvastatin (Zocor) 10 mg HS PO Last administered on 01/12/19 22:40; Start at 22:30 Bupropion HCl (Wellbutrin Xl) 150 mg DAILY PO ; Start 01/13/19 at 09:00 Hydroxyzine Pamoate (Vistaril) 50 mg BID PO Last administered on 01/12/19 22: 40; Start 01/12/19 at 22:30 Insulin Human Lispro (HumaLOG) 15 units TIDWMEALS SQ ; Start 01/13/19 at 08:00 Pantoprazole Sodium (Protonix) 40 mg DAILYAC PO ; Start 01/13/19 at 07:30 Prazosin HCl (Minipress) 4 mg QHS PO Last administered on 01/12/19 22:42; Start 01/12/19 at 23:00 Propranolol HCl (Inderal La) 80 mg QHS PO Last administered on 01/12/19 22:43 ; Start 01/12/19 at 23:00 Tizanidine HCl (Zanaflex) 4 mg TID PO Last administered on 01/12/19 22:41; Start 01/12/19 at 22:30 Zolpidem Tartrate (Ambien) 5 mg PRN QHS PRN PO INSOMNIA, MAY REPEAT X1 Last administered on 01/12/19 22:40; Start 01/12/19 at 22:15 Zonisamide (Zonegran) 300 mg QHS PO Last administered on 01/12/19 22:42; Start 01/12/19 at 23:00 Metoprolol Tartrate (Lopressor Vial) 5 mg 1X ONCE IVP Last administered on 22:46; Start 01/12/19 at 22:30; Stop 01/12/19 at 22:31; Status DC Sumatriptan Succinate (Imitrex) 50 mg PRN Q2HR PRN PO MIGRAINE HEADACHE Last administered on 01/13/19 03:02; Start 3/30/19 at 03:00 Influenza Virus Vaccine (Afluria Trivalent [id number] Syringe) 0.5 ml ONCE ONCE VAX IM Last administered on 01/13/19at 08:29; Start 01/13/19 at 09:00; Stop at 09:01; Status DC Nitroglycerin (Nitrostat) 0.4 mg PRN Q5MIN PRN SL CHEST PAIN Last administered on 01/13/19at 10:15; Start 01/13/19 at 10:00 Active Scripts Active Reported Gabapentin (Gabapentin) 100 Mg Capsule 100 Mg PO TID PRN Propranolol Hcl 80 Mg Tablet 80 Mg PO HS Novolog (Insulin Aspart) 100 Unit/1 Ml Cartridge 15 Unit SQ TIDWMEALS Lantus Solostar (Insulin Glargine,Hum.rec.anlog) 100 Unit/1 Ml Insuln.pen 50 Unit SQ QHS Lisinopril 20 Mg Tablet 1 Tab PO DAILY Zonisamide 100 Mg Capsule 300 Mg PO HS Protonix (Pantoprazole Sodium) 20 Mg Tablet.dr 2 Tab PO DAILY Gabapentin (Gabapentin) 400 Mg Capsule 400 Mg PO TID Ambien Cr (Zolpidem Tartrate) 12.5 Mg Tab.mphase 10 Tab PO QHS PRN Aspirin 325 Mg Tablet 1 Tab PO DAILY Enoxaparin Sodium 150 Mg/1 Ml Disp.syrin 120 Mg SQ HS Prazosin Hcl 2 Mg Capsule 2 Cap PO QHS Hydroxyzine Hcl 25 Mg Tablet 2 Tab PO BID Wellbutrin Xl (Bupropion Hcl) 300 Mg Tab.er.24h 150 Mg PO DAILY Abilify (Aripiprazole) 5 Mg Tablet 2 Tab PO DAILY Tizanidine Hcl 4 Mg Tablet 4 Mg PO TID Simvastatin 10 Mg Tablet 10 Mg PO HS Levothyroxine Sodium 112 Mcg Tablet 112 Mcg PO DAILY Clonazepam 1 Mg Tablet 1 Tab PO TID Vitals/I & O Vital Sign - Last 24 Hours 01/12/19 01/12/19 01/12/19 01/12/19 18:20 18:33 19:04 19:34 Temp 97.6 97.6 Pulse 85 83 87 83 Resp 17 B/P (MAP) 200/97 (131) 200/97 (131) 205/88 (127) 187/89 (121) Pulse Ox 98 98 98 97 O2 Delivery Room Air Room Air Room Air Room Air 01/12/19 01/12/19 01/12/19 01/12/19 20:04 20:33 20:45 21:10 Temp 98.0 98.0 Pulse 87 88 Resp 17 18 24 16 B/P (MAP) 187/87 (120) 202/86 (124) Pulse Ox 97 97 O2 Delivery Room Air Room Air Room Air Room Air 01/12/19 01/12/19 01/12/19 01/12/19 22:42 22:43 22:46 23:00 Pulse 92 92 92 89 B/P (MAP) 205/87 205/87 205/87 01/12/19 01/13/19 01/13/19 01/13/19 23:17 00:12 03:00 07:00 Temp 98.3 98.0 97.9 98.3 98.0 97.9 Pulse 78 81 90 Resp 22 20 18 B/P (MAP) 189/83 (118) 128/84 (99) 140/96 (111) Pulse Ox 95 95 96 O2 Delivery Room Air Room Air Room Air Room Air 01/13/19 01/13/19 01/13/19 01/13/19 08:08 10:06 10:15 10:23 Temp 97.6 97.6 Pulse 90 90 78 Resp 22 B/P (MAP) 140/96 140/96 153/81 (105) Pulse Ox 99 O2 Delivery Room Air Nasal Cannula O2 Flow Rate 3.0 01/13/19 10:28 Pulse Ox 99 O2 Delivery Nasal Cannula O2 Flow Rate 3.0 Intake and Output 01/12/19 01/12/19 01/13/19 15:00 23:00 07:00 Intake Total 420 ml Output Total 400 ml Balance 20 ml RAMIREZ POWER MD Jan 13, 2019 10:47
--- NOTE | 2019-01-13 11:11 | PDOC2 ---
CONSULT Date of Consult Date of Consult DATE: 01/13/19 TIME: 11:11 Reason for Consult Reason for Consult: Chest pain Referring Physician Referring Physician: Dr. Guzman Identification/Chief Complaint Chief Complaint Chest pain Source Source: Chart review, Patient History of Present Illness Reason for Visit: 43-year-old female with history of fibromyalgia presented complaining of almost 1 month history of continuous left-sided chest pain, 7/10 severity not related to exertion or food intake. She was actually seen in the emergency room recently when preliminary workup was negative. She denied any orthopnea/PND, palpitations or syncope. She has family history of coronary artery disease but cardiac catheterization in 2016 did not show any significant coronary artery disease. Past Medical History Cardiovascular: HTN, Hyperlipidemia, Other Pulmonary: Asthma, Bronchitis, Pulmonary embolus, Pneumonia CENTRAL NERVOUS SYSTEM: Other GI: GERD, Peptic Ulcer disease Heme/Onc: Anemia NOS Hepatobiliary: No pertinent hx Psych: Anxiety, Depression Musculoskeletal: Osteoarthritis Rheumatologic: Fibromyalgia Infectious disease: No pertinent hx Renal/: Other Endocrine: Diabetes Past Surgical History Past Surgical History: Cholecystectomy, Tonsillectomy, Hysterectomy Family History Family History: Diabetes, Heart Disease, High Cholestrol, Hypertension, Stroke Social History No ALCOHOL: none Drugs: None Lives: with Family Domestic Violence: Neg Current Problem List Problem List Problems Medical Problems: (1) Chest pain Status: Acute Current Medications Current Medications Current Medications Aspirin (Aide Aspirin) 325 mg 1X ONCE PO Last administered on 01/12/19at 19:18 ; Start 01/12/19 at 19:00; Stop 01/12/19 at 19:01; Status DC Sodium Chloride 1,000 ml @ 1,000 mls/hr 1X ONCE IV Last administered on at 19:18; Start 01/12/19 at 19:00; Stop 01/12/19 at 19:59; Status DC Ondansetron HCl (Zofran) 4 mg PRN Q8HRS PRN IV NAUSEA/VOMITING; Start 01/12/19 at 19:00; Stop 01/13/19 at 18:59 Fentanyl Citrate (Fentanyl 2ml Vial) 50 mcg PRN Q2HR PRN IV PAIN Last administered on 01/13/19at 10:28; Start 01/12/19 at 19:00 Insulin Human Lispro (HumaLOG) 0-5 UNITS TIDWMEALS SQ ; Start 01/13/19 at 08:00 Dextrose (Dextrose 50%-Water Syringe) 12.5 gm PRN Q15MIN PRN IV SEE COMMENTS; Start 01/12/19 at 19:00 Aripiprazole (Abilify) 10 mg DAILY PO ; Start 01/13/19 at 09:00 Aspirin (Aide Aspirin) 325 mg DAILY PO ; Start 01/13/19 at 09:00 Clonazepam (KlonoPIN) 1 mg TID PO Last administered on 01/12/19at 22:40; Start 01/12/19 at 22:30 Enoxaparin Sodium (Lovenox 120mg Syringe) 120 mg QHS SQ Last administered on at 22:43; Start 01/12/19 at 23:00 Gabapentin (Neurontin) 100 mg PRN TID PRN PO NEUROPATHIC PAIN; Start 01/12/19 at 22:00 Gabapentin (Neurontin) 400 mg TID PO Last administered on 01/12/19at 22:40; Start 01/12/19 at 22:30 Insulin Glargine (Lantus) 50 units QHS SQ Last administered on 01/12/19at 22:45 ; Start 01/12/19 at 22:30 Levothyroxine Sodium (Synthroid) 112 mcg DAILY06 PO Last administered on at 06:26; Start 01/13/19 at 06:00 Lisinopril (Prinivil) 20 mg DAILY PO ; Start 01/13/19 at 09:00 Simvastatin (Zocor) 10 mg HS PO Last administered on 01/12/19at 22:40; Start at 22:30 Bupropion HCl (Wellbutrin Xl) 150 mg DAILY PO ; Start 01/13/19 at 09:00 Hydroxyzine Pamoate (Vistaril) 50 mg BID PO Last administered on 01/12/19at 22: 40; Start 01/12/19 at 22:30 Insulin Human Lispro (HumaLOG) 15 units TIDWMEALS SQ ; Start 01/13/19 at 08:00 Pantoprazole Sodium (Protonix) 40 mg DAILYAC PO ; Start 01/13/19 at 07:30 Prazosin HCl (Minipress) 4 mg QHS PO Last administered on 01/12/19at 22:42; Start 01/12/19 at 23:00 Propranolol HCl (Inderal La) 80 mg QHS PO Last administered on 01/12/19 22:43 ; Start 01/12/19 at 23:00 Tizanidine HCl (Zanaflex) 4 mg TID PO Last administered on 01/12/19 22:41; Start 01/12/19 at 22:30 Zolpidem Tartrate (Ambien) 5 mg PRN QHS PRN PO INSOMNIA, MAY REPEAT X1 Last administered on 01/12/19 22:40; Start 01/12/19 at 22:15 Zonisamide (Zonegran) 300 mg QHS PO Last administered on 01/12/19 22:42; Start 01/12/19 at 23:00 Metoprolol Tartrate (Lopressor Vial) 5 mg 1X ONCE IVP Last administered on 22:46; Start 01/12/19 at 22:30; Stop 01/12/19 at 22:31; Status DC Sumatriptan Succinate (Imitrex) 50 mg PRN Q2HR PRN PO MIGRAINE HEADACHE Last administered on 01/13/19 03:02; Start 01/13/19 at 03:00 Influenza Virus Vaccine (Afluria Trivalent 6432-1328 Syringe) 0.5 ml ONCE ONCE VAX IM Last administered on 01/13/19at 08:29; Start 01/13/19 at 09:00; Stop at 09:01; Status DC Nitroglycerin (Nitrostat) 0.4 mg PRN Q5MIN PRN SL CHEST PAIN Last administered on 01/13/19at 10:15; Start 01/13/19 at 10:00 Active Scripts Active Reported Gabapentin (Gabapentin) 100 Mg Capsule 100 Mg PO TID PRN Propranolol Hcl 80 Mg Tablet 80 Mg PO HS Novolog (Insulin Aspart) 100 Unit/1 Ml Cartridge 15 Unit SQ TIDWMEALS Lantus Solostar (Insulin Glargine,Hum.rec.anlog) 100 Unit/1 Ml Insuln.pen 50 Unit SQ QHS Lisinopril 20 Mg Tablet 1 Tab PO DAILY Zonisamide 100 Mg Capsule 300 Mg PO HS Protonix (Pantoprazole Sodium) 20 Mg Tablet.dr 2 Tab PO DAILY Gabapentin (Gabapentin) 400 Mg Capsule 400 Mg PO TID Ambien Cr (Zolpidem Tartrate) 12.5 Mg Tab.mphase 10 Tab PO QHS PRN Aspirin 325 Mg Tablet 1 Tab PO DAILY Enoxaparin Sodium 150 Mg/1 Ml Disp.syrin 120 Mg SQ HS Prazosin Hcl 2 Mg Capsule 2 Cap PO QHS Hydroxyzine Hcl 25 Mg Tablet 2 Tab PO BID Wellbutrin Xl (Bupropion Hcl) 300 Mg Tab.er.24h 150 Mg PO DAILY Abilify (Aripiprazole) 5 Mg Tablet 2 Tab PO DAILY Tizanidine Hcl 4 Mg Tablet 4 Mg PO TID Simvastatin 10 Mg Tablet 10 Mg PO HS Levothyroxine Sodium 112 Mcg Tablet 112 Mcg PO DAILY Clonazepam 1 Mg Tablet 1 Tab PO TID Allergies Allergies: Coded Allergies: Sulfa (Sulfonamide Antibiotics) (Verified Allergy, Severe, SWELLING OF MOUTH AND HIVES, 11/04/15) shellfish derived (Verified Allergy, Severe, MOUTH SWELLING AND HIVES, ) doxycycline (Verified Allergy, Intermediate, HIVES, 11/04/15) duloxetine (Verified Adverse Reaction, Intermediate, HYPERTENSION/ TACHYCARDIA, 11/04/15) hydromorphone (Verified Adverse Reaction, Intermediate, NAUSEA AND VOMITING, 11/04/15) imipramine (Verified Adverse Reaction, Intermediate, IRREGULAR HEART BEAT , 11/04/15) metformin (Verified Adverse Reaction, Intermediate, ACIDOSIS, 02/27/16) nalbuphine (Verified Adverse Reaction, Intermediate, EPISTAXIS, 11/04/15) propoxyphene (Verified Adverse Reaction, Intermediate, NAUSEA AND VOMITING , 11/04/15) dabigatran etexilate (Verified Adverse Reaction, Mild, Nausea, 08/27/16) rivaroxaban (Verified Adverse Reaction, Mild, Nausea and Vomiting, ) warfarin (Verified Adverse Reaction, Mild, Nausea, 08/27/16) ROS PSYCHOLOGICAL ROS: No: Hallucinations Eyes: No Loss of vision HEENT: No: Epistaxis Respiratory: No: Hemoptysis, Shortness of breath Cardiovascular: yes Chest Pain Gastrointestinal: No Vomiting, No Diarrhea Genitourinary: No Hematuria Neurological: No Seizures Skin: No Rash Physical Exam General: Alert, Oriented X3 HEENT: Atraumatic, PERRLA Lungs: Clear to auscultation Heart: Regular rate Abdomen: Soft Extremities: No edema Neuro: Normal tone Psych/Mental Status: Mood NL Vitals VITALS Vital Signs Date Time Temp Pulse Resp B/P (MAP) Pulse Ox O2 Delivery O2 Flow Rate FiO2 01/13/19 11:05 Nasal Cannula 3.0 01/13/19 10:28 99 01/13/19 10:23 97.6 78 22 153/81 (105) 97.6 Labs Labs Laboratory Tests Test 01/12/19 18:35 01/12/19 21:50 01/12/19 22:18 01/13/19 00:40 White Blood Count 8.7 x10^3/uL (4.0-11.0) Red Blood Count 5.15 x10^6/uL (3.50-5.40) Hemoglobin 14.7 g/dL (12.0-15.5) Hematocrit 44.1 % (36.0-47.0) Mean Corpuscular Volume 86 fL (79-100) Mean Corpuscular Hemoglobin 29 pg (25-35) Mean Corpuscular Hemoglobin Concent 33 g/dL (31-37) Red Cell Distribution Width 14.5 % (11.5-14.5) Platelet Count 283 x10^3/uL (140-400) Neutrophils (%) (Auto) 48 % (31-73) Lymphocytes (%) (Auto) 41 % (24-48) Monocytes (%) (Auto) 7 % (0-9) Eosinophils (%) (Auto) 3 % (0-3) Basophils (%) (Auto) 1 % (0-3) Neutrophils # (Auto) 4.2 x10^3uL (1.8-7.7) Lymphocytes # (Auto) 3.6 x10^3/uL (1.0-4.8) Monocytes # (Auto) 0.6 x10^3/uL (0.0-1.1) Eosinophils # (Auto) 0.3 x10^3/uL (0.0-0.7) Basophils # (Auto) 0.1 x10^3/uL (0.0-0.2) Prothrombin Time 12.0 SEC (11.7-14.0) Prothromb Time International Ratio 0.9 (0.8-1.1) Sodium Level 144 mmol/L (136-145) Potassium Level 3.9 mmol/L (3.5-5.1) Chloride Level 106 mmol/L (98-107) Carbon Dioxide Level 26 mmol/L (21-32) Anion Gap 12 (6-14) Blood Urea Nitrogen 13 mg/dL (7-20) Creatinine 0.8 mg/dL (0.6-1.0) Estimated GFR (Cockcroft-Gault) 77.6 BUN/Creatinine Ratio 16 (6-20) Glucose Level 170 mg/dL (70-99) Calcium Level 9.1 mg/dL (8.5-10.1) Magnesium Level 1.8 mg/dL (1.8-2.4) Total Bilirubin 0.2 mg/dL (0.2-1.0) Aspartate Amino Transf (AST/SGOT) 17 U/L (15-37) Alanine Aminotransferase (ALT/SGPT) 46 U/L (14-59) Alkaline Phosphatase 118 U/L (46-116) Creatine Kinase 99 U/L (26-192) Creatine Kinase MB (Mass) < 0.5 ng/mL (0.0-3.6) Creatine Kinase MB Relative Index % (0-4) Troponin I Quantitative < 0.017 ng/mL (0.000-0.055) < 0.017 ng/mL (0.000-0.055) < 0.017 ng/mL (0.000-0.055) GV-Ilu-W-Type Natriuretic Peptide 97 pg/mL (0-124) Total Protein 8.0 g/dL (6.4-8.2) Albumin 3.4 g/dL (3.4-5.0) Albumin/Globulin Ratio 0.7 (1.0-1.7) Lipase 125 U/L (73-393) Glucose (Fingerstick) 167 mg/dL (70-99) Test 01/13/19 07:30 Glucose (Fingerstick) 148 mg/dL (70-99) Laboratory Tests Test 01/12/19 18:35 01/12/19 21:50 01/12/19 22:18 01/13/19 00:40 White Blood Count 8.7 x10^3/uL (4.0-11.0) Red Blood Count 5.15 x10^6/uL (3.50-5.40) Hemoglobin 14.7 g/dL (12.0-15.5) Hematocrit 44.1 % (36.0-47.0) Mean Corpuscular Volume 86 fL (79-100) Mean Corpuscular Hemoglobin 29 pg (25-35) Mean Corpuscular Hemoglobin Concent 33 g/dL (31-37) Red Cell Distribution Width 14.5 % (11.5-14.5) Platelet Count 283 x10^3/uL (140-400) Neutrophils (%) (Auto) 48 % (31-73) Lymphocytes (%) (Auto) 41 % (24-48) Monocytes (%) (Auto) 7 % (0-9) Eosinophils (%) (Auto) 3 % (0-3) Basophils (%) (Auto) 1 % (0-3) Neutrophils # (Auto) 4.2 x10^3uL (1.8-7.7) Lymphocytes # (Auto) 3.6 x10^3/uL (1.0-4.8) Monocytes # (Auto) 0.6 x10^3/uL (0.0-1.1) Eosinophils # (Auto) 0.3 x10^3/uL (0.0-0.7) Basophils # (Auto) 0.1 x10^3/uL (0.0-0.2) Prothrombin Time 12.0 SEC (11.7-14.0) Prothromb Time International Ratio 0.9 (0.8-1.1) Sodium Level 144 mmol/L (136-145) Potassium Level 3.9 mmol/L (3.5-5.1) Chloride Level 106 mmol/L (98-107) Carbon Dioxide Level 26 mmol/L (21-32) Anion Gap 12 (6-14) Blood Urea Nitrogen 13 mg/dL (7-20) Creatinine 0.8 mg/dL (0.6-1.0) Estimated GFR (Cockcroft-Gault) 77.6 BUN/Creatinine Ratio 16 (6-20) Glucose Level 170 mg/dL (70-99) Calcium Level 9.1 mg/dL (8.5-10.1) Magnesium Level 1.8 mg/dL (1.8-2.4) Total Bilirubin 0.2 mg/dL (0.2-1.0) Aspartate Amino Transf (AST/SGOT) 17 U/L (15-37) Alanine Aminotransferase (ALT/SGPT) 46 U/L (14-59) Alkaline Phosphatase 118 U/L (46-116) Creatine Kinase 99 U/L (26-192) Creatine Kinase MB (Mass) < 0.5 ng/mL (0.0-3.6) Creatine Kinase MB Relative Index % (0-4) Troponin I Quantitative < 0.017 ng/mL (0.000-0.055) < 0.017 ng/mL (0.000-0.055) < 0.017 ng/mL (0.000-0.055) TL-Mlr-X-Type Natriuretic Peptide 97 pg/mL (0-124) Total Protein 8.0 g/dL (6.4-8.2) Albumin 3.4 g/dL (3.4-5.0) Albumin/Globulin Ratio 0.7 (1.0-1.7) Lipase 125 U/L (73-393) Glucose (Fingerstick) 167 mg/dL (70-99) Test 01/13/19 07:30 Glucose (Fingerstick) 148 mg/dL (70-99) Assessment/Plan Assessment/Plan 1. Chest pain with atypical features, most probably musculoskeletal. Myocardial infarction has been ruled out. Cardiac catheterization in 2016 did not show any significant coronary artery disease. Check 2-D echo to assess LV function and rule out wall motion abnormalities. 2. Hypertension: Continue current medications 3. Hyperlipidemia: Continue statin therapy 4. Hypothyroidism: Continue levothyroxine 5. Diabetes mellitus type 2: Treat per IM Thank you for your consultation ETIENNE CADE MD Jan 13, 2019 11:11
[2019-01-13] MEDS: ZOLPIDEM 5 MG TABLET. PO PRN (21:10)
[2019-01-13] MEDS: SIMVASTATIN 10 MG TABLET PO SCH (21:11)
[2019-01-13] MEDS: PRAZOSIN 1 MG CAPSULE. PO SCH (21:12)
[2019-01-13] MEDS: PROPRANOLOL ER 80 MG CAP.ER.24H. PO SCH (21:13)
[2019-01-13] MEDS: ZONISAMIDE 100 MG CAPSULE. PO SCH (21:13)
[2019-01-13] MEDS: INSULIN GLARGINE 300 UNITS/3 ML INSULN.PEN. SQ SCH (21:20)
[2019-01-14 03:30] VITALS: BP 117/59
[2019-01-14] MEDS: LEVOTHYROXINE 112 MCG TABLET PO SCH (05:53)
[2019-01-14 07:51] VITALS: BP 116/73
[2019-01-14] MEDS: INSULIN LISPRO 300 UNITS/3 ML INSULN.PEN. SQ SCH ×6 (08:00→18:13)
[2019-01-14] MEDS: buPROPion XL 150 MG TAB.ER.24H. PO SCH (09:23)
[2019-01-14] MEDS: ARIPiprazole 5 MG TABLET PO SCH (09:23)
[2019-01-14] MEDS: PANTOPRAZOLE 40 MG TABLET.DR. PO SCH (09:23)
[2019-01-14] MEDS: clonazePAM 1 MG TABLET PO SCH ×2 (09:23→15:47)
[2019-01-14] MEDS: ASPIRIN 325 MG TABLET PO SCH (09:23)
[2019-01-14] MEDS: tiZANidine 4 MG TABLET. PO SCH ×2 (09:23→15:47)
[2019-01-14] MEDS: hydrOXYzine PAMOATE 25 MG CAPSULE PO SCH (09:24)
[2019-01-14] MEDS: LISINOPRIL 20 MG TABLET PO SCH (09:24)
[2019-01-14] MEDS: GABAPENTIN 400 MG CAPSULE. PO SCH ×2 (09:32→15:47)
--- NOTE | 2019-01-14 09:55 | PDOC ---
PROGRESS NOTES Subjective Subjective Chest pain improved but not resolved Objective Objective Vital Signs Date Time Temp Pulse Resp B/P (MAP) Pulse Ox O2 Delivery O2 Flow Rate FiO2 01/14/19 09:24 74 116/73 01/14/19 07:51 97.8 18 93 Room Air 97.8 01/13/19 15:00 3.0 Intake and Output 01/14/19 06:59 Intake Total 740 ml Output Total 900 ml Balance -160 ml Intake Oral 740 ml Output Urine Total 900 ml Physical Exam Abdomen: Soft Heart: Regular rate, Normal S1, No murmurs Extremities: No clubbing, No cyanosis, No edema, Normal pulses General: Alert, Oriented X3, Cooperative, No acute distress HEENT: Atraumatic, PERRLA Lungs: Clear to auscultation MUSCULOSKELETAL: Osteoarthritic changes both hands Neuro: Normal tone Psych/Mental Status: Mood NL Skin: No rashes Assessment Assessment 1. Chest pain with atypical features, most probably musculoskeletal. Myocardial infarction has been ruled out. Cardiac catheterization in 2016 did not show any significant coronary artery disease. Check 2-D echo to assess LV function and rule out wall motion abnormalities. 2. Hypertension: Controlled 3. Hyperlipidemia: Continue statin therapy 4. Hypothyroidism: Continue levothyroxine 5. Diabetes mellitus type 2: Treat per IM Plan Plan of Care Problems Medical Problems: (1) Chest pain Status: Acute Comment Review of Relevant I have reviewed the following items colin (where applicable) has been applied. Labs Laboratory Tests Test 01/13/19 11:20 01/13/19 17:05 01/13/19 20:49 01/14/19 08:01 Glucose (Fingerstick) 156 mg/dL (70-99) 176 mg/dL (70-99) 159 mg/dL (70-99) 146 mg/dL (70-99) Medications Current Medications Nitroglycerin (Nitrostat) 0.4 mg PRN Q5MIN PRN SL CHEST PAIN Last administered on 01/13/19at 10:15; Start 01/13/19 at 10:00 Vitals/I & O Vital Sign - Last 24 Hours 01/13/19 01/13/19 01/13/19 01/13/19 10:06 10:15 10:23 10:28 Temp 97.6 97.6 Pulse 90 90 78 Resp 22 B/P (MAP) 140/96 140/96 153/81 (105) Pulse Ox 99 99 O2 Delivery Nasal Cannula Nasal Cannula O2 Flow Rate 3.0 3.0 01/13/19 01/13/19 01/13/19 01/13/19 11:05 15:00 19:45 20:00 Temp 97.5 97.8 97.5 97.8 Pulse 84 87 Resp 18 18 B/P (MAP) 157/83 (107) 114/76 (89) Pulse Ox 97 98 O2 Delivery Room Air Room Air Room Air O2 Flow Rate 3.0 3.0 01/13/19 01/13/19 01/13/19 01/13/19 21:12 21:13 23:17 23:31 Temp 97.7 97.7 Pulse 87 87 88 Resp 18 B/P (MAP) 114/76 114/76 141/85 (103) Pulse Ox 95 O2 Delivery Room Air Room Air 01/13/19 01/14/19 01/14/19 01/14/19 23:47 03:30 07:51 09:24 Temp 98.0 97.8 98.0 97.8 Pulse 72 74 74 Resp 20 18 B/P (MAP) 117/59 (78) 116/73 (87) 116/73 Pulse Ox 96 93 O2 Delivery Room Air Room Air Room Air Intake and Output 01/13/19 01/13/19 01/14/19 14:59 22:59 06:59 Intake Total 150 ml 240 ml 350 ml Output Total 900 ml Balance 150 ml 240 ml -550 ml ETIENNE CADE MD Jan 14, 2019 09:55
[2019-01-14 10:31] VITALS: BP 103/69
[2019-01-14 14:18] VITALS: BP 89/56
--- NOTE | 2019-01-14 14:56 | PDOC ---
PROGRESS NOTES Chief Complaint Chief Complaint IMPRESSION presented to the ER for the second time this week for chest pain. She was seen in the ER 1 week ago, CT Angio chest was POS ASCENDING AORTA ECTASIA , and troponin neg, and sent home. She now returns 1 week later, and the chest pain is worse. She has left sided chest pain that is pressure more than sharp pain, and the pain radiates to her left arm. She has mult anxiety./depression problems, but that has been managed well by [facility] She has a hx of PE, and is on Lovenox, she reports intolerance to all PO options, She sees Dr. Minaya at [facility] for this. strong family history of heart problmems, her brother at age 37 from CAD and her mom at age 52, CAD and CVA pain was 9/10 in the ER No pulmonary embolism is evident. There is ectasia of the ascending aorta measuring up to 4.2 cm in greatest dimension. No intimal flap or dissection is seen otherwise. This is stable. The heart size is within normal limits. No pericardial effusion is seen. No enlarged thoracic lymphadenopathy is evident echo needed to eval AV, PENDING plan admit 2-D echo to assess LV function and rule out wall motion abnormalities. pending serial troponin i home meds low sodium diet chest pain not resolved History of Present Illness History of Present Illness Assessment/Plan Assessment/Plan chest pain, angina, with pressure and left shoulder pain to arm anxiety and depression obesity BMI 40 htn, mult agents, poss some diastolic dysfuntion mult allergies admit cvc monitoring serial troponin i cardiology consult home meds 32 MIN PT EXAM, CHART REVIEW, > 50% OF TIME SPENT WITH EXAM, CHART REVIEW, PT CARE COORDINATION Vitals Vitals Vital Signs Date Time Temp Pulse Resp B/P (MAP) Pulse Ox O2 Delivery O2 Flow Rate FiO2 01/14/19 14:18 97.7 79 18 89/56 (67) 96 Room Air 97.7 01/13/19 15:00 3.0 Physical Exam General: Alert, Oriented X3, Cooperative, No acute distress, mild distress Heart: Regular rate, Normal S1, No murmurs Lungs: Clear Abdomen: Normal bowel sounds, Soft Extremities: No clubbing, No cyanosis, No edema, Normal pulses Skin: No rashes Labs LABS PATIENT: NISHANT ESTRADA ACCOUNT: [id number] : 1975 LOCATION: ER AGE: 43 SEX: F EXAM STATUS: REG ER ORD. PHYSICIAN: RODNEY PARTIDA DO REASON: CHEST PAIN, SOA, HX OF RECURRENT PE PROCEDURE: CT ANGIOGRAPHY CHEST CTA OF THE CHEST WITH AND WITHOUT CONTRAST Clinical indications: Chest pain and shortness of air. History of recurrent pulmonary embolism. Technique: Noncontrast axial localizer was performed. After IV infusion of 100 cc of Omnipaque 350, helical CT scanning of the chest was performed using the CT pulmonary embolism protocol. A coronal MIP reconstruction was generated. PQRS compliance Statement One or more of the following individualized dose reduction techniques were utilized for this study: 1. Automated exposure control 2. Adjustment of the mA and/or kV according to patient size 3. Use of iterative reconstruction technique Comparison: Chest CTA dated August 27, 2016. Findings: No pulmonary embolism is evident. There is ectasia of the ascending aorta measuring up to 4.2 cm in greatest dimension. No intimal flap or dissection is seen otherwise. This is stable. The heart size is within normal limits. No pericardial effusion is seen. No enlarged thoracic lymphadenopathy is evident. No pleural effusion or pneumothorax is seen. No lung mass or consolidative lung infiltrate is seen. The proximal bronchial tree is patent. No lytic process is seen. No adrenal mass is evident. IMPRESSION: No pulmonary embolism. No acute lung infiltrate. Electronically signed by: Josh Gonzales MD (01/02/2019 4:56 PM) [facility] Laboratory Tests Test 01/13/19 17:05 01/13/19 20:49 01/14/19 08:01 01/14/19 12:05 Glucose (Fingerstick) 176 mg/dL (70-99) 159 mg/dL (70-99) 146 mg/dL (70-99) 144 mg/dL (70-99) Assessment and Plan Assessmemt and Plan Problems Medical Problems: (1) Chest pain Status: Acute Comment Review of Relevant I have reviewed the following items colin (where applicable) has been applied. Labs Laboratory Tests Test 01/12/19 18:35 01/12/19 21:50 01/12/19 22:18 01/13/19 00:40 White Blood Count 8.7 x10^3/uL (4.0-11.0) Red Blood Count 5.15 x10^6/uL (3.50-5.40) Hemoglobin 14.7 g/dL (12.0-15.5) Hematocrit 44.1 % (36.0-47.0) Mean Corpuscular Volume 86 fL (79-100) Mean Corpuscular Hemoglobin 29 pg (25-35) Mean Corpuscular Hemoglobin Concent 33 g/dL (31-37) Red Cell Distribution Width 14.5 % (11.5-14.5) Platelet Count 283 x10^3/uL (140-400) Neutrophils (%) (Auto) 48 % (31-73) Lymphocytes (%) (Auto) 41 % (24-48) Monocytes (%) (Auto) 7 % (0-9) Eosinophils (%) (Auto) 3 % (0-3) Basophils (%) (Auto) 1 % (0-3) Neutrophils # (Auto) 4.2 x10^3uL (1.8-7.7) Lymphocytes # (Auto) 3.6 x10^3/uL (1.0-4.8) Monocytes # (Auto) 0.6 x10^3/uL (0.0-1.1) Eosinophils # (Auto) 0.3 x10^3/uL (0.0-0.7) Basophils # (Auto) 0.1 x10^3/uL (0.0-0.2) Prothrombin Time 12.0 SEC (11.7-14.0) Prothromb Time International Ratio 0.9 (0.8-1.1) Sodium Level 144 mmol/L (136-145) Potassium Level 3.9 mmol/L (3.5-5.1) Chloride Level 106 mmol/L (98-107) Carbon Dioxide Level 26 mmol/L (21-32) Anion Gap 12 (6-14) Blood Urea Nitrogen 13 mg/dL (7-20) Creatinine 0.8 mg/dL (0.6-1.0) Estimated GFR (Cockcroft-Gault) 77.6 BUN/Creatinine Ratio 16 (6-20) Glucose Level 170 mg/dL (70-99) Calcium Level 9.1 mg/dL (8.5-10.1) Magnesium Level 1.8 mg/dL (1.8-2.4) Total Bilirubin 0.2 mg/dL (0.2-1.0) Aspartate Amino Transf (AST/SGOT) 17 U/L (15-37) Alanine Aminotransferase (ALT/SGPT) 46 U/L (14-59) Alkaline Phosphatase 118 U/L (46-116) Creatine Kinase 99 U/L (26-192) Creatine Kinase MB (Mass) < 0.5 ng/mL (0.0-3.6) Creatine Kinase MB Relative Index % (0-4) Troponin I Quantitative < 0.017 ng/mL (0.000-0.055) < 0.017 ng/mL (0.000-0.055) < 0.017 ng/mL (0.000-0.055) RZ-Hzj-M-Type Natriuretic Peptide 97 pg/mL (0-124) Total Protein 8.0 g/dL (6.4-8.2) Albumin 3.4 g/dL (3.4-5.0) Albumin/Globulin Ratio 0.7 (1.0-1.7) Lipase 125 U/L (73-393) Glucose (Fingerstick) 167 mg/dL (70-99) Test 01/13/19 07:30 01/13/19 11:20 01/13/19 17:05 01/13/19 20:49 Glucose (Fingerstick) 148 mg/dL (70-99) 156 mg/dL (70-99) 176 mg/dL (70-99) 159 mg/dL (70-99) Test 01/14/19 08:01 01/14/19 12:05 Glucose (Fingerstick) 146 mg/dL (70-99) 144 mg/dL (70-99) Laboratory Tests Test 01/13/19 17:05 01/13/19 20:49 01/14/19 08:01 01/14/19 12:05 Glucose (Fingerstick) 176 mg/dL (70-99) 159 mg/dL (70-99) 146 mg/dL (70-99) 144 mg/dL (70-99) Medications Current Medications Aspirin (Aide Aspirin) 325 mg 1X ONCE PO Last administered on 01/12/19at 19:18 ; Start 01/12/19 at 19:00; Stop 01/12/19 at 19:01; Status DC Sodium Chloride 1,000 ml @ 1,000 mls/hr 1X ONCE IV Last administered on 19:18; Start 01/12/19 at 19:00; Stop 01/12/19 at 19:59; Status DC Ondansetron HCl (Zofran) 4 mg PRN Q8HRS PRN IV NAUSEA/VOMITING; Start 01/12/19 at 19:00; Stop 01/13/19 at 18:59; Status DC Fentanyl Citrate (Fentanyl 2ml Vial) 50 mcg PRN Q2HR PRN IV PAIN Last administered on 01/13/19 23:17; Start 01/12/19 at 19:00 Insulin Human Lispro (HumaLOG) 0-5 UNITS TIDWMEALS SQ Last administered on 01/13 17:19; Start 01/13/19 at 08:00 Dextrose (Dextrose 50%-Water Syringe) 12.5 gm PRN Q15MIN PRN IV SEE COMMENTS; Start 01/12/19 at 19:00 Aripiprazole (Abilify) 10 mg DAILY PO Last administered on 01/14/19 09:23; Start 01/13/19 at 09:00 Aspirin (Aide Aspirin) 325 mg DAILY PO Last administered on 01/14/19 09:23; Start 01/13/19 at 09:00 Clonazepam (KlonoPIN) 1 mg TID PO Last administered on 01/14/19 09:23; Start 01/12/19 at 22:30 Enoxaparin Sodium (Lovenox 120mg Syringe) 120 mg QHS SQ Last administered on 21:10; Start 01/12/19 at 23:00 Gabapentin (Neurontin) 100 mg PRN TID PRN PO NEUROPATHIC PAIN Last administered on 01/14/19 09:23; Start 01/12/19 at 22:00 Gabapentin (Neurontin) 400 mg TID PO Last administered on 01/14/19 09:32; Start 01/12/19 at 22:30 Insulin Glargine (Lantus) 50 units QHS SQ Last administered on 01/13/19 21:20 ; Start 01/12/19 at 22:30 Levothyroxine Sodium (Synthroid) 112 mcg DAILY06 PO Last administered on 05:53; Start 01/13/19 at 06:00 Lisinopril (Prinivil) 20 mg DAILY PO Last administered on 01/14/19 09:24; Start 01/13/19 at 09:00 Simvastatin (Zocor) 10 mg HS PO Last administered on 01/13/19 21:11; Start at 22:30 Bupropion HCl (Wellbutrin Xl) 150 mg DAILY PO Last administered on 01/14/19 09 :23; Start 01/13/19 at 09:00 Hydroxyzine Pamoate (Vistaril) 50 mg BID PO Last administered on 01/14/19 09: 24; Start 01/12/19 at 22:30 Insulin Human Lispro (HumaLOG) 15 units TIDWMEALS SQ Last administered on 12:39; Start 01/13/19 at 08:00 Pantoprazole Sodium (Protonix) 40 mg DAILYAC PO Last administered on 01/14/19 09:23; Start 01/13/19 at 07:30 Prazosin HCl (Minipress) 4 mg QHS PO Last administered on 01/13/19 21:12; Start 01/12/19 at 23:00 Propranolol HCl (Inderal La) 80 mg QHS PO Last administered on 01/13/19 21:13 ; Start 01/12/19 at 23:00 Tizanidine HCl (Zanaflex) 4 mg TID PO Last administered on 01/14/19 09:23; Start 01/12/19 at 22:30 Zolpidem Tartrate (Ambien) 5 mg PRN QHS PRN PO INSOMNIA, MAY REPEAT X1 Last administered on 01/13/19 21:10; Start 01/12/19 at 22:15 Zonisamide (Zonegran) 300 mg QHS PO Last administered on 01/13/19 21:13; Start 01/12/19 at 23:00 Metoprolol Tartrate (Lopressor Vial) 5 mg 1X ONCE IVP Last administered on 22:46; Start 01/12/19 at 22:30; Stop 01/12/19 at 22:31; Status DC Sumatriptan Succinate (Imitrex) 50 mg PRN Q2HR PRN PO MIGRAINE HEADACHE Last administered on 01/13/19at 03:02; Start 01/13/19 at 03:00 Influenza Virus Vaccine (Afluria Trivalent [id number] Syringe) 0.5 ml ONCE ONCE VAX IM Last administered on 01/13/19at 08:29; Start 01/13/19 at 09:00; Stop at 09:01; Status DC Nitroglycerin (Nitrostat) 0.4 mg PRN Q5MIN PRN SL CHEST PAIN Last administered on 01/13/19at 10:15; Start 01/13/19 at 10:00 Active Scripts Active Reported Gabapentin (Gabapentin) 100 Mg Capsule 100 Mg PO TID PRN Propranolol Hcl 80 Mg Tablet 80 Mg PO HS Novolog (Insulin Aspart) 100 Unit/1 Ml Cartridge 15 Unit SQ TIDWMEALS Lantus Solostar (Insulin Glargine,Hum.rec.anlog) 100 Unit/1 Ml Insuln.pen 50 Unit SQ QHS Lisinopril 20 Mg Tablet 1 Tab PO DAILY Zonisamide 100 Mg Capsule 300 Mg PO HS Protonix (Pantoprazole Sodium) 20 Mg Tablet.dr 2 Tab PO DAILY Gabapentin (Gabapentin) 400 Mg Capsule 400 Mg PO TID Ambien Cr (Zolpidem Tartrate) 12.5 Mg Tab.mphase 10 Tab PO QHS PRN Aspirin 325 Mg Tablet 1 Tab PO DAILY Enoxaparin Sodium 150 Mg/1 Ml Disp.syrin 120 Mg SQ HS Prazosin Hcl 2 Mg Capsule 2 Cap PO QHS Hydroxyzine Hcl 25 Mg Tablet 2 Tab PO BID Wellbutrin Xl (Bupropion Hcl) 300 Mg Tab.er.24h 150 Mg PO DAILY Abilify (Aripiprazole) 5 Mg Tablet 2 Tab PO DAILY Tizanidine Hcl 4 Mg Tablet 4 Mg PO TID Simvastatin 10 Mg Tablet 10 Mg PO HS Levothyroxine Sodium 112 Mcg Tablet 112 Mcg PO DAILY Clonazepam 1 Mg Tablet 1 Tab PO TID Vitals/I & O Vital Sign - Last 24 Hours 01/13/19 01/13/19 01/13/19 01/13/19 15:00 19:45 20:00 21:12 Temp 97.5 97.8 97.5 97.8 Pulse 84 87 87 Resp 18 18 B/P (MAP) 157/83 (107) 114/76 (89) 114/76 Pulse Ox 97 98 O2 Delivery Room Air Room Air Room Air O2 Flow Rate 3.0 01/13/19 01/13/19 01/13/19 01/13/19 21:13 23:17 23:31 23:47 Temp 97.7 97.7 Pulse 87 88 Resp 18 B/P (MAP) 114/76 141/85 (103) Pulse Ox 95 O2 Delivery Room Air Room Air Room Air 01/14/19 01/14/19 01/14/19 01/14/19 03:30 07:51 08:00 09:24 Temp 98.0 97.8 98.0 97.8 Pulse 72 74 74 Resp 20 18 B/P (MAP) 117/59 (78) 116/73 (87) 116/73 Pulse Ox 96 93 O2 Delivery Room Air Room Air Room Air 01/14/19 01/14/19 01/14/19 09:25 10:31 14:18 Temp 97.7 97.7 97.7 97.7 Pulse 81 79 Resp 20 18 B/P (MAP) 103/69 (80) 89/56 (67) Pulse Ox 98 96 O2 Delivery Room Air Room Air Room Air Intake and Output 01/13/19 01/13/19 01/14/19 15:00 23:00 07:00 Intake Total 150 ml 240 ml 350 ml Output Total 900 ml Balance 150 ml 240 ml -550 ml RAMIREZ POWER MD Jan 14, 2019 14:56
--- NOTE | 2019-01-14 19:04 | NUR ---
Discharge Note: MOLLY ESTRADA Discharge instructions and discharge home medications reviewed with Patient and a copy given. All questions have been answered and understanding verbalized.
--- NOTE | 2019-01-15 08:08 | CARD ---
MR#: [id number] Date of Study: 01/14/2019 Ordering Physician: ETIENNE CADE, Referring Physician: WILLY DELANEY Tech: Claudia Ramirez TODD APPROVED REPORT EXAM: Two-dimensional and M-mode echocardiogram with Doppler and color Doppler. Other Information Quality : AverageHR: 72bpm Rhythm : NSR INDICATION Hypertension/HCVD Chest Pain RISK FACTORS Hypertension Obesity Hyperlipidemia Family History Diabetes 2D DIMENSIONS RVDd3.1 (2.9-3.5cm)Left Atrium(2D)3.2 (1.6-4.0cm) IVSd1.0 (0.7-1.1cm)Aortic Root(2D)3.0 (2.0-3.7cm) LVDd4.3 (3.9-5.9cm)LVOT Diameter1.9 (1.8-2.4cm) PWd1.0 (0.7-1.1cm)LVDs2.8 (2.5-4.0cm) FS (%) 34.8 %SV54.0 ml LVEF(%)64.3 (>50%) Aortic Valve AoV Peak Wei.131.0cm/[place] GR.6.9mmHg LVOT Peak Wei.118.2cm/sAVA (VMAX)2.54cm2 Mitral Valve MV E Tzulexio13.2cm/sMV DECEL [id number] MV A Ifdxhwds09.8cm/sE/A Ratio1.3 MV A [id number] Pulmonary Valve PV Peak Czrfzjml38.6cm/s Tricuspid Valve TR P. Kpscfeoh720fn/sTR Peak Gr.13mmHg Pulmonary Vein S1 Yciagdgk21.0cm/sD2 Arlmtydo80.3cm/s PVa [id number] LEFT VENTRICLE The left ventricle is normal size. There is normal left ventricular wall thickness. The left ventricu lar systolic function is normal. The ejection fraction is estimated at 60%. There is normal LV segmen randa wall motion. There is no ventricular septal defect visualized. RIGHT VENTRICLE The right ventricle is normal size. There is normal right ventricular wall thickness. The right ventr icular systolic function is normal. ATRIA The left atrium size is normal. The right atrium size is normal. The interatrial septum is intact wit h no evidence for an atrial septal defect or patent foramen ovale as noted on 2-D or Doppler imaging. AORTIC VALVE The aortic valve is normal in structure and function. Doppler and Color Flow revealed no significant aortic regurgitation. There is no significant aortic valvular stenosis. MITRAL VALVE The mitral valve is normal in structure and function. There is no mitral valve stenosis. Doppler and Color-flow revealed mild mitral regurgitation. TRICUSPID VALVE The tricuspid valve is normal in structure and function. Doppler and Color Flow revealed trace tricus pid regurgitation. PAP calculates to be 17 mmHg. There is no tricuspid valve stenosis. PULMONIC VALVE The pulmonary valve is normal in structure and function. Trivial pulmonic regurgitation. GREAT VESSELS The aortic root is normal in size. The ascending aorta is normal in size. The IVC is normal in size a nd collapses >50% with inspiration. PERICARDIAL EFFUSION There is trivial posterior effustion. There is no evidence of significant pericardial effusion. Critical Notification Critical Value: No <Conclusion> The left ventricular systolic function is normal. The ejection fraction is estimated at 60%. There is normal LV segmental wall motion. Mild mitral regurgitation. Trace tricuspid regurgitation. PAP calculates to be 17 mmHg. There is no evidence of significant pericardial effusion. Signed by : Etienne Cade, Electronically Approved : 01/15/2019 08:07:32
== END 2019-01-14 19:05 | disposition home or self-care (01) | DRG 206 ==
LOC: ER 18:20 → 2 SOUTH 19:25
PROVIDERS: ADMIT Internal Medicine; ATTEND Internal Medicine
DX: M94.0 Chondrocostal junction syndrome [Tietze] (principal); Z68.41 Body mass index [BMI] 40.0-44.9, adult; E03.9 Hypothyroidism, unspecified; E11.9 Type 2 diabetes mellitus without complications; E66.9 Obesity, unspecified; E78.00 Pure hypercholesterolemia, unspecified; E78.5 Hyperlipidemia, unspecified; F32.9 Major depressive disorder, single episode, unspecified; F41.0 Panic disorder [episodic paroxysmal anxiety]; F43.10 Post-traumatic stress disorder, unspecified; G25.81 Restless legs syndrome; G43.909 Migraine, unspecified, not intractable, without status migrainosus; I10 Essential (primary) hypertension; I34.1 Nonrheumatic mitral (valve) prolapse; I77.810 Thoracic aortic ectasia; J45.909 Unspecified asthma, uncomplicated; M19.90 Unspecified osteoarthritis, unspecified site; K21.9 Gastro-esophageal reflux disease without esophagitis; M79.7 Fibromyalgia; Z90.49 Acquired absence of other specified parts of digestive tract; Z90.710 Acquired absence of both cervix and uterus; Z91.013 Allergy to seafood; Z88.2 Allergy status to sulfonamides; Z88.8 Allergy status to other drugs, medicaments and biological substances; Z91.018 Allergy to other foods; Z91.048 Other nonmedicinal substance allergy status; Z79.01 Long term (current) use of anticoagulants; Z87.01 Personal history of pneumonia (recurrent); Z86.718 Personal history of other venous thrombosis and embolism; Z86.711 Personal history of pulmonary embolism; Z87.11 Personal history of peptic ulcer disease; Z87.442 Personal history of urinary calculi; Z86.14 Personal history of Methicillin resistant Staphylococcus aureus infection; Z82.3 Family history of stroke; Z82.49 Family history of ischemic heart disease and other diseases of the circulatory system; Z83.3 Family history of diabetes mellitus
CPT/HCPCS: 36415; 71046; 80053; 82553; 82962; 83690; 83735; 83880; 84484; 85025; 85610; 90471; 90756; 93005; 93306; 96360; J1650; J1815; J3010; J3490; J7030; Q0177; 99285-25; Q2035

== ENCOUNTER 2019-07-07 10:46 | Emergency (ER) | payer OTHER ==
[~2019-07-07] VITALS: Ht 162.6 cm; Wt 108.9 kg
[~2019-07-07 10:46] MED LIST changes: -CLON1TAB11 PO; +CLONAZEPAM1 MG PO; +GABA-585 PO; +GABA-689 PO; +INSU100C4 SQ; +INSU100I13 SQ; +MONT10TA49 PO; -MONT10TA6 PO; +PANT20TA2 PO; -PANT40TA5 PO; +PANT40TA77 PO; +PROP80TA PO; -TIZA4TAB PO; +TIZA4TAB2 PO
[2019-07-07] MEDS ORDERED: KETOROLAC 30 MG/ML VIAL. IV ONE (11:15)
--- NOTE | 2019-07-07 11:19 | PHYS DOC ---
Past Medical History Past Medical History: Anxiety, Asthma, Depression, Diabetes-Type II, DVT, Fibromyalgia, GERD, High Cholesterol, Hypertension, Hypothyroid, Kidney Stone, Migraines, MRSA Additional Past Medical Histor: ovarian cyst,mitral prolapse,PTSD, PANIC ATTACKS,PE'S, RLS, cirrhosis Past Surgical History: Cholecystectomy, Hysterectomy, Tonsillectomy, Other Additional Past Surgical Histo: NONMALIGMENT TUMOR BACK OF HEAD REMOVED,OVARIAN CYSTS,Knee surgeries Alcohol Use: None Drug Use: None Adult General Chief Complaint Chief Complaint: FLANK PAIN HPI HPI Patient is a 43 year old female with a history of multiple medical conditions including hypertension, diabetes type II, high cholesterol, depression, fibromyalgia, who presents to the ED today with right flank pain and dysuria that began this morning. Patient denies any nausea vomiting. She is complaining of diarrhea. Denies any exacerbating or relieving factors. Rates her pain as mild Review of Systems Review of Systems Constitutional: Denies fever or chills [] Eyes: Denies change in visual acuity, redness, or eye pain [] HENT: Denies nasal congestion or sore throat [] Respiratory: Denies cough or shortness of breath [] Cardiovascular: No additional information not addressed in HPI [] GI: Denies abdominal pain, nausea, vomiting, bloody stools or diarrhea [] : Reports right flank pain. Denies dysuria or hematuria [] Musculoskeletal: Denies back pain or joint pain [] Integument: Denies rash or skin lesions [] Neurologic: Denies headache, focal weakness or sensory changes [] All other systems were reviewed and found to be within normal limits, except as documented in this note. Current Medications Current Medications Current Medications Medications (Trade) Dose Ordered Sig/Poncho Start Time Stop Time Status Last Admin Dose Admin Ceftriaxone Sodium (Rocephin) 1 gm 1X ONCE 07/07/19 12:00 07/07/19 12:01 DC 07/07/19 12:27 1 GM Ketorolac Tromethamine (Toradol 30mg Vial) 30 mg 1X ONCE 07/07/19 11:15 07/07/19 11:16 DC 07/07/19 11:57 30 MG Allergies Allergies Allergies Coded Allergies Type Severity Reaction Last Updated Verified Sulfa (Sulfonamide Antibiotics) Allergy Severe SWELLING OF MOUTH AND HIVES 11/04/15 Yes shellfish derived Allergy Severe MOUTH SWELLING AND HIVES 11/04/15 Yes doxycycline Allergy Intermediate HIVES 11/04/15 Yes duloxetine Adverse Reaction Intermediate HYPERTENSION/TACHYCARDIA 11/04/15 Yes hydromorphone Adverse Reaction Intermediate NAUSEA AND VOMITING 11/04/15 Yes imipramine Adverse Reaction Intermediate IRREGULAR HEART BEAT 11/04/15 Yes metformin Adverse Reaction Intermediate ACIDOSIS 02/27/16 Yes nalbuphine Adverse Reaction Intermediate EPISTAXIS 11/04/15 Yes propoxyphene Adverse Reaction Intermediate NAUSEA AND VOMITING 11/04/15 Yes dabigatran etexilate Adverse Reaction Mild Nausea 08/27/16 Yes rivaroxaban Adverse Reaction Mild Nausea and Vomiting 08/27/16 Yes warfarin Adverse Reaction Mild Nausea 08/27/16 Yes Physical Exam Physical Exam Constitutional: Well developed, well nourished, no acute distress, non-toxic appearance. [] HENT: Normocephalic, atraumatic, bilateral external ears normal, oropharynx moist, no oral exudates, nose normal. [] Eyes: PERRLA, EOMI, conjunctiva normal, no discharge. [] Neck: Normal range of motion, no tenderness, supple, no stridor. [] Cardiovascular:Heart rate regular rhythm, no murmur [] Lungs & Thorax: Bilateral breath sounds clear to auscultation [] Abdomen: Bowel sounds normal, soft, no tenderness, no masses, no pulsatile masses. [] Skin: Warm, dry, no erythema, no rash. [] Back: No tenderness, no CVA tenderness. [] Extremities: No tenderness, no cyanosis, no clubbing, ROM intact, no edema. [] Neurologic: Alert and oriented X 3, normal motor function, normal sensory function, no focal deficits noted. [] Psychologic: Affect normal, judgement normal, mood normal. [] Current Patient Data Lab Values Laboratory Tests Test 07/07/19 11:15 07/07/19 12:05 Urine Collection Type Unknown Urine Color Yellow Urine Clarity Clear Urine pH 6.0 Urine Specific [place] 1.025 Urine Protein Negative mg/dL (NEG-TRACE) Urine Glucose (UA) Negative mg/dL (NEG) Urine Ketones (Stick) Negative mg/dL (NEG) Urine Blood Negative (NEG) Urine Nitrite Negative (NEG) Urine Bilirubin Negative (NEG) Urine Urobilinogen Dipstick 0.2 mg/dL (0.2 mg/dL) Urine Leukocyte Esterase Small (NEG) Urine RBC 0 /HPF (0-2) Urine WBC 1-4 /HPF (0-4) Urine Squamous Epithelial Cells Few /LPF Urine Bacteria 0 /HPF (0-FEW) Urine Mucus Mod /LPF White Blood Count 8.6 x10^3/uL (4.0-11.0) Red Blood Count 4.85 x10^6/uL (3.50-5.40) Hemoglobin 14.0 g/dL (12.0-15.5) Hematocrit 41.3 % (36.0-47.0) Mean Corpuscular Volume 85 fL (79-100) Mean Corpuscular Hemoglobin 29 pg (25-35) Mean Corpuscular Hemoglobin Concent 34 g/dL (31-37) Red Cell Distribution Width 13.3 % (11.5-14.5) Platelet Count 250 x10^3/uL (140-400) Neutrophils (%) (Auto) 50 % (31-73) Lymphocytes (%) (Auto) 40 % (24-48) Monocytes (%) (Auto) 7 % (0-9) Eosinophils (%) (Auto) 2 % (0-3) Basophils (%) (Auto) 1 % (0-3) Neutrophils # (Auto) 4.3 x10^3/uL (1.8-7.7) Lymphocytes # (Auto) 3.4 x10^3/uL (1.0-4.8) Monocytes # (Auto) 0.6 x10^3/uL (0.0-1.1) Eosinophils # (Auto) 0.2 x10^3/uL (0.0-0.7) Basophils # (Auto) 0.1 x10^3/uL (0.0-0.2) Sodium Level 142 mmol/L (136-145) Potassium Level 3.8 mmol/L (3.5-5.1) Chloride Level 106 mmol/L (98-107) Carbon Dioxide Level 27 mmol/L (21-32) Anion Gap 9 (6-14) Blood Urea Nitrogen 14 mg/dL (7-20) Creatinine 0.9 mg/dL (0.6-1.0) Estimated GFR (Cockcroft-Gault) 67.7 BUN/Creatinine Ratio 16 (6-20) Glucose Level 88 mg/dL (70-99) Calcium Level 9.3 mg/dL (8.5-10.1) Total Bilirubin 0.4 mg/dL (0.2-1.0) Aspartate Amino Transferase (AST) 12 U/L (15-37) L Alanine Aminotransferase (ALT) 29 U/L (14-59) Alkaline Phosphatase 104 U/L (46-116) Total Protein 7.3 g/dL (6.4-8.2) Albumin 3.2 g/dL (3.4-5.0) L Albumin/Globulin Ratio 0.8 (1.0-1.7) L Lipase 143 U/L (73-393) Laboratory Tests 07/07/19 12:05 Laboratory Tests 07/07/19 12:05 EKG EKG [] Radiology/Procedures Radiology/Procedures [] Course & Med Decision Making Course & Med Decision Making Pertinent Labs and Imaging studies reviewed. (See chart for details) This is a 43-year-old female patient who presents to the ED today complaining of right flank pain. CBC with a normal WBC, CMP with no acute findings, urine n oted for small amount of leukocytes. Patient was given Rocephin IV in the ED and discharged with cephalexin follow-up with PCP in 1-2. Dragon Disclaimer Dragon Disclaimer This electronic medical record was generated, in whole or in part, using a voice recognition dictation system. Departure Departure Impression: Primary Impression: UTI (urinary tract infection) Disposition: 01 HOME, SELF-CARE Condition: STABLE Referrals: UNKNOWN PCP NAME (PCP) follow up in one week Patient Instructions: Urinary Tract Infection Additional Instructions: You have urinary tract infection. Take the prescribed antibiotics until completed. Follow-up with your doctor in 1-2 weeks. Scripts Cephalexin (CEPHALEXIN) 500 Mg Tablet 1 TAB PO BID, #14 TAB Prov: ZE SANTIAGO APRN 07/07/19 Problem Qualifiers Primary Impression: UTI (urinary tract infection) Urinary tract infection type: site unspecified Hematuria presence: without hematuria Qualified Codes: N39.0 - Urinary tract infection, site not specified ZE SANTIAGO APRN Jul 07, 2019 11:19
[2019-07-07 11:24] LABS: BILIRUBIN,URINE NEGATIVE (NEG); CLARITY,URINE CLEAR; COLOR,URINE YELLOW; NITRITE,URINE NEGATIVE (NEG); PROTEIN,URINE NEGATIVE (NEG-TRACE); UROBILINOGEN,URINE 0.2 mg/dL (0.2 mg/dL)
[2019-07-07 11:44] LABS: BACTERIA,URINE 0 /HPF (0-FEW); RBC,URINE 0 /HPF (0-2); SQUAMOUS EPITHELIAL CELL,UR FEW /LPF
[2019-07-07] MEDS ORDERED: cefTRIAXone IV Push 1 GM VIAL. IVP ONE (12:00)
[2019-07-07 12:15] LABS: BASO # 0.1 x10^3/uL (0.0-0.2); BASO % 1 % (0-3); EOS # 0.2 x10^3/uL (0.0-0.7); EOS % 2 % (0-3); HEMATOCRIT 41.3 % (36.0-47.0); LYMPH # 3.4 x10^3/uL (1.0-4.8); LYMPH % 40 % (24-48); MEAN CORPUSCULAR HEMOGLOBIN 29 pg (25-35); MEAN CORPUSCULAR HGB CONC 34 g/dL (31-37); MEAN CORPUSCULAR VOLUME 85 fL (79-100); MONO # 0.6 x10^3/uL (0.0-1.1); MONO % 7 % (0-9); NEUT # 4.3 x10^3/uL (1.8-7.7); NEUT % 50 % (31-73); PLATELET COUNT 250 x10^3/uL (140-400); RED BLOOD COUNT 4.85 x10^6/uL (3.50-5.40); RED CELL DISTRIBUTION WIDTH 13.3 % (11.5-14.5); WHITE BLOOD COUNT 8.6 x10^3/uL (4.0-11.0)
[2019-07-07 12:20] LABS: CALCIUM 9.3 mg/dL (8.5-10.1); CREATININE 0.9 mg/dL (0.6-1.0); GFR 67.7; POTASSIUM 3.8 mmol/L (3.5-5.1)
[2019-07-07 12:25] LABS: ALBUMIN 3.2 g/dL (3.4-5.0); ALBUMIN/GLOBULIN RATIO 0.8 (1.0-1.7); TOTAL BILIRUBIN 0.4 mg/dL (0.2-1.0); TOTAL PROTEIN 7.3 g/dL (6.4-8.2)
[2019-07-07] MEDS ORDERED: CEPH500T PO (12:38)
[2019-07-07 13:29] VITALS: BP 160/69
[2019-07-07 14:09] LABS: BARBITURATES POS (NEG); BENZODIAZEPINES NEG (NEG); CANNABINOIDS NEG (NEG); COCAINE NEG (NEG); METHADONE NEG (NEG); OPIATES NEG (NEG); PHENCYCLIDINE NEG (NEG)
[2019-07-07 14:18] LABS: AMPHETAMINE/METHAMPHETAMINE NEG (NEG)
[2019-07-07] MEDS ORDERED: DICY20TA3 PO (19:51)
== END 2019-07-07 13:36 | disposition home or self-care (01) ==
LOC: ER 10:46
DX: N39.0 Urinary tract infection, site not specified (principal); J45.909 Unspecified asthma, uncomplicated; E11.9 Type 2 diabetes mellitus without complications; K21.9 Gastro-esophageal reflux disease without esophagitis; E78.00 Pure hypercholesterolemia, unspecified; I10 Essential (primary) hypertension; E03.9 Hypothyroidism, unspecified; G43.909 Migraine, unspecified, not intractable, without status migrainosus; Z87.442 Personal history of urinary calculi; Z86.718 Personal history of other venous thrombosis and embolism; Z88.2 Allergy status to sulfonamides; Z88.1 Allergy status to other antibiotic agents; Z88.5 Allergy status to narcotic agent; Z91.013 Allergy to seafood; Z88.8 Allergy status to other drugs, medicaments and biological substances; Z90.49 Acquired absence of other specified parts of digestive tract; Z90.710 Acquired absence of both cervix and uterus; Z86.14 Personal history of Methicillin resistant Staphylococcus aureus infection
CPT/HCPCS: 36415; 80053; 80307; 81001; 82962; 83690; 85025; 87086; 96374; 96375; 99284; J0696; J1885

== ENCOUNTER 2019-07-07 18:17 | Emergency (ER) | payer OTHER ==
[~2019-07-07] VITALS: Ht 162.6 cm; Wt 108.9 kg
[~2019-07-07 18:17] MED LIST changes: +CEPH500T PO
[2019-07-07 19:00] VITALS: BP 174/102
[2019-07-07] MEDS ORDERED: IV NORMAL SALINE 1000ML BAG 1,000 ML IV ONE (19:15)
[2019-07-07] MEDS ORDERED: DICY20TA3 PO (19:51)
--- NOTE | 2019-07-07 19:51 | PHYS DOC ---
Past Medical History Past Medical History: Anxiety, Asthma, Depression, Diabetes-Type II, DVT, Fibromyalgia, GERD, High Cholesterol, Hypertension, Hypothyroid, Kidney Stone, Migraines, MRSA Additional Past Medical Histor: ovarian cyst,mitral prolapse,PTSD, PANIC ATTACKS,PE'S, RLS, cirrhosis Past Surgical History: Cholecystectomy, Hysterectomy, Tonsillectomy, Other Additional Past Surgical Histo: NONMALIGMENT TUMOR BACK OF HEAD REMOVED,OVARIAN CYSTS,Knee surgeries Alcohol Use: None Drug Use: None Adult General Chief Complaint Chief Complaint: DIARRHEA HPI HPI Patient is a 43 year old female with a history of multiple medical conditions including hypertension, diabetes type II, high cholesterol, depression, fibromyalgia, who presents to the ED today complaining of diarrhea since this morning. Patient was seen earlier in the ED and diagnosed with the UTI, was sent home with cephalexin, she states her diarrhea got worse this afternoon. Review of Systems Review of Systems Constitutional: Denies fever or chills [] Eyes: Denies change in visual acuity, redness, or eye pain [] HENT: Denies nasal congestion or sore throat [] Respiratory: Denies cough or shortness of breath [] Cardiovascular: No additional information not addressed in HPI [] GI: Reports diarrhea. Denies abdominal pain, nausea, vomiting, bloody stools : Denies dysuria or hematuria [] Musculoskeletal: Denies back pain or joint pain [] Integument: Denies rash or skin lesions [] Neurologic: Denies headache, focal weakness or sensory changes [] All other systems were reviewed and found to be within normal limits, except as documented in this note. Current Medications Current Medications Current Medications Medications (Trade) Dose Ordered Sig/Poncho Start Time Stop Time Status Last Admin Dose Admin Sodium Chloride 1,000 ml @ 1,000 mls/hr 1X ONCE 07/07/19 19:15 07/07/19 20:14 07/07/19 19:32 1,000 MLS/HR Allergies Allergies Allergies Coded Allergies Type Severity Reaction Last Updated Verified Sulfa (Sulfonamide Antibiotics) Allergy Severe SWELLING OF MOUTH AND HIVES 11/04/15 Yes shellfish derived Allergy Severe MOUTH SWELLING AND HIVES 11/04/15 Yes doxycycline Allergy Intermediate HIVES 11/04/15 Yes duloxetine Adverse Reaction Intermediate HYPERTENSION/TACHYCARDIA 11/04/15 Yes hydromorphone Adverse Reaction Intermediate NAUSEA AND VOMITING 11/04/15 Yes imipramine Adverse Reaction Intermediate IRREGULAR HEART BEAT 11/04/15 Yes metformin Adverse Reaction Intermediate ACIDOSIS 02/27/16 Yes nalbuphine Adverse Reaction Intermediate EPISTAXIS 11/04/15 Yes propoxyphene Adverse Reaction Intermediate NAUSEA AND VOMITING 11/04/15 Yes dabigatran etexilate Adverse Reaction Mild Nausea 08/27/16 Yes rivaroxaban Adverse Reaction Mild Nausea and Vomiting 08/27/16 Yes warfarin Adverse Reaction Mild Nausea 08/27/16 Yes Physical Exam Physical Exam Constitutional: Well developed, well nourished, no acute distress, non-toxic appearance. [] HENT: Normocephalic, atraumatic, bilateral external ears normal, oropharynx moist, no oral exudates, nose normal. [] Eyes: PERRLA, EOMI, conjunctiva normal, no discharge. [] Neck: Normal range of motion, no tenderness, supple, no stridor. [] Cardiovascular:Heart rate regular rhythm, no murmur [] Lungs & Thorax: Bilateral breath sounds clear to auscultation [] Abdomen: Bowel sounds normal, soft, no tenderness, no masses, no pulsatile masses. [] Skin: Warm, dry, no erythema, no rash. [] Back: No tenderness, no CVA tenderness. [] Extremities: No tenderness, no cyanosis, no clubbing, ROM intact, no edema. [] Neurologic: Alert and oriented X 3, normal motor function, normal sensory function, no focal deficits noted. [] Psychologic: flat affect. EKG EKG [] Radiology/Procedures Radiology/Procedures [] Course & Med Decision Making Course & Med Decision Making Pertinent Labs and Imaging studies reviewed. (See chart for details) This is a 43-year-old female patient presenting to the ED today with diarrhea but she states began this morning. Patient was seen earlier in the ED for UTI, was discharged with cephalexin, she states her diarrhea has gotten worse. Her workup I did this morning her CBC was normal. Her CMP had no acute findings. On arrival to the ED i requested patient to give us stool so we can send it for C. difficile and culture etc. Considering she had complained of multiple stools today she somehow was unable to have any diarrhea in the ED. She states she believes she is dehydrated and would like a liter of fluid. 1 liter of fluid was given to her. She was instructed to stop taking the antibiotics. She was given Rocephin IV earlier. She was discharged home and instructed to take Lomotil. Given prescription for dicyclomine. F/u with PCP next week Off note patient is well known to this ED for multiple visits. Dragon Disclaimer Dragon Disclaimer This electronic medical record was generated, in whole or in part, using a voice recognition dictation system. Departure Departure Impression: Primary Impression: Diarrhea Disposition: HOME, SELF-CARE Condition: STABLE Referrals: UNKNOWN PCP NAME (PCP) follow up with your docto next week Patient Instructions: Diarrhea Additional Instructions: You were seen for diarrhea, push fluids, continue taking Lomotil as needed for diarrhea, we also wrote a prescription for dicyclomine. Take it as ordered. Stop taking antibiotics you got earlier today. Follow-up with your doctor on Tuesday Scripts Dicyclomine Hcl (DICYCLOMINE HCL) 20 Mg Tablet 1 TAB PO TID, #30 TAB 1 Refill Prov: ZE SANTIAGO APRN 07/07/19 Problem Qualifiers Primary Impression: Diarrhea Diarrhea type: unspecified type Qualified Codes: R19.7 - Diarrhea, unspecified ZE SANTIAGO APRN Jul 07, 2019 19:51
== END 2019-07-07 20:33 | disposition home or self-care (01) ==
LOC: ER 18:17
DX: R19.7 Diarrhea, unspecified (principal); J45.909 Unspecified asthma, uncomplicated; E11.9 Type 2 diabetes mellitus without complications; K21.9 Gastro-esophageal reflux disease without esophagitis; E78.00 Pure hypercholesterolemia, unspecified; I10 Essential (primary) hypertension; E03.9 Hypothyroidism, unspecified; G43.909 Migraine, unspecified, not intractable, without status migrainosus; Z87.442 Personal history of urinary calculi; Z90.49 Acquired absence of other specified parts of digestive tract; Z90.710 Acquired absence of both cervix and uterus; Z91.013 Allergy to seafood; Z88.2 Allergy status to sulfonamides; Z88.1 Allergy status to other antibiotic agents; Z88.5 Allergy status to narcotic agent; Z88.8 Allergy status to other drugs, medicaments and biological substances; Z86.14 Personal history of Methicillin resistant Staphylococcus aureus infection; Z86.718 Personal history of other venous thrombosis and embolism
CPT/HCPCS: 96360; 99284; J7030; 99285-25

== ENCOUNTER 2021-02-23 10:15 | Emergency (ER) | payer OTHER ==
[~2021-02-23] VITALS: Ht 162.6 cm; Wt 104.5 kg
[~2021-02-23 10:15] MED LIST changes: -ACYC200C PO; +ACYC200C84 PO; +DICY20TA3 PO; -FLUT100D IH; +FLUT100D2 IH; -LEVO112T4 PO; +LEVO112T49 PO; -LISI-334 PO; +LISI20TA18 PO; -PREG50CA PO; +PREG50CA91 PO; +SIMV10TA15 PO; -SIMV10TA3 PO; +TRAZ-123 PO; -TRAZ-86 PO; -ZONI100C PO; +ZONI100C26 PO
--- NOTE | 2021-02-23 12:27 | NUR ---
Pt requested/provided warm blanket.
--- NOTE | 2021-02-23 14:43 | RAD ---
EXAM: Chest, single view. HISTORY: Cough. COMPARISON: 01/12/2019 FINDINGS: A frontal view of the chest obtained. There is no infiltrate, pleural effusion or pneumotho rax. The heart is normal in size. IMPRESSION: No acute pulmonary finding. Electronically signed by: Janine Albarran MD (02/23/2021 2:41 PM) [facility]
--- NOTE | 2021-02-23 16:21 | PHYS DOC ---
Past Medical History Past Medical History: Anxiety, Asthma, Depression, Diabetes-Type II, GERD, High Cholesterol, Hypertension Additional Past Medical Histor: ovarian cyst,mitral prolapse,PTSD, PANIC ATTACKS,PE'S, RLS, cirrhosis (YAAKOV SIDDIQUI DO) Past Surgical History: Hysterectomy Additional Past Surgical Histo: KIDNEY STONE REMOVAL 01/04 (YAAKOV SIDDIQUI DO) Smoking Status: Never Smoker Alcohol Use: None Drug Use: None (YAAKOV SIDDIQUI DO) General Adult EDM: Chief Complaint: FLU SYMPTOM HPI: HPI: Patient is a 45 year old [f__sex] who presents with [] (YAAKOV SIDDIQUI DO) Review of Systems: Review of Systems: Constitutional: Denies fever or chills. [] Eyes: Denies change in visual acuity. [] HENT: Denies nasal congestion or sore throat. [] Respiratory: Denies cough or shortness of breath. [] Cardiovascular: Denies chest pain or edema. [] GI: Denies abdominal pain, nausea, vomiting, bloody stools or diarrhea. [] : Denies dysuria. [] Musculoskeletal: Denies back pain or joint pain. [] Integument: Denies rash. [] Neurologic: Denies headache, focal weakness or sensory changes. [] Endocrine: Denies polyuria or polydipsia. [] Lymphatic: Denies swollen glands. [] Psychiatric: Denies depression or anxiety. [] (YAAKOV SIDDIQUI DO) Heart Score: Risk Factors: Risk Factors: DM, Current or recent (<one month) smoker, HTN, HLP, family history of CAD, obesity. Risk Scores: Score 0 - 3: 2.5% MACE over next 6 weeks - Discharge Home Score 4 - 6: 20.3% MACE over next 6 weeks - Admit for Clinical Observation Score 7 - 10: 72.7% MACE over next 6 weeks - Early Invasive Strategies (YAAKOV SIDDIQUI DO) C/O Chest Pain: Yes HEART Score for Chest Pain: HEART Score for Chest Pain Response (Comments) Value History Slighlty/Non-Suspicious 0 ECG Normal 0 Age >45 - < 65 1 Risk Factors 1 or 2 Risk Factors 1 Troponin < Normal Limit 0 Total 2 (JONI ISAACS DO) Allergies: Allergies: Allergies Coded Allergies Type Severity Reaction Last Updated Verified Sulfa (Sulfonamide Antibiotics) Allergy Severe SWELLING OF MOUTH AND HIVES 11/04/15 Yes shellfish derived Allergy Severe MOUTH SWELLING AND HIVES 11/04/15 Yes doxycycline Allergy Intermediate HIVES 11/04/15 Yes duloxetine Adverse Reaction Intermediate HYPERTENSION/TACHYCARDIA 11/04/15 Yes hydromorphone Adverse Reaction Intermediate NAUSEA AND VOMITING 11/04/15 Yes imipramine Adverse Reaction Intermediate IRREGULAR HEART BEAT 11/04/15 Yes metformin Adverse Reaction Intermediate ACIDOSIS 02/27/16 Yes nalbuphine Adverse Reaction Intermediate EPISTAXIS 11/04/15 Yes propoxyphene Adverse Reaction Intermediate NAUSEA AND VOMITING 11/04/15 Yes dabigatran etexilate Adverse Reaction Mild Nausea 08/27/16 Yes rivaroxaban Adverse Reaction Mild Nausea and Vomiting 08/27/16 Yes warfarin Adverse Reaction Mild Nausea 08/27/16 Yes (YAAKOV SIDDIQUI DO) Physical Exam: PE: Constitutional: Well developed, well nourished, no acute distress, non-toxic appearance. HENT: Normocephalic, atraumatic, Eyes: EOMI, conjunctiva normal, no discharge. Neck: Normal range of motion, supple, Cardiovascular: S1/2 present, regular rhythm Lungs & Thorax: Speaking in full sentences, bilateral equal chest rise, no tachypnea or increased work of breathing Abdomen: soft, no tenderness, Skin: Warm, dry, no erythema, no rash. [] Back: No tenderness, no CVA tenderness. [] Extremities: No tenderness, no cyanosis, no lower extremity edema Neurologic: Alert and oriented X 3, normal motor function, normal sensory function, no focal deficits noted. [] Psychologic: Affect normal, judgement normal, mood normal. [] [facility] Current Patient Data: Labs: Laboratory Tests Test 02/23/21 14:07 Group A Streptococcus Rapid Negative (NEGATIVE) Vital Signs: Vital Signs Date Time Temp Pulse Resp B/P (MAP) Pulse Ox O2 Delivery O2 Flow Rate FiO2 02/23/21 11:10 98.1 76 20 118/62 (80) 95 Room Air 98.1 ([facility]) Labs: Laboratory Tests Test 02/23/21 14:07 02/23/21 18:07 02/23/21 18:39 Group A Streptococcus Rapid Negative Glucose (Fingerstick) 136 mg/dL White Blood Count 7.9 x10^3/uL Red Blood Count 5.16 x10^6/uL Hemoglobin 15.0 g/dL Hematocrit 44.0 % Mean Corpuscular Volume 85 fL Mean Corpuscular Hemoglobin 29 pg Mean Corpuscular Hemoglobin Concent 34 g/dL Red Cell Distribution Width 13.8 % Platelet Count 248 x10^3/uL Neutrophils (%) (Auto) 49 % Lymphocytes (%) (Auto) 40 % Monocytes (%) (Auto) 7 % Eosinophils (%) (Auto) 3 % Basophils (%) (Auto) 1 % Neutrophils # (Auto) 3.8 x10^3/uL Lymphocytes # (Auto) 3.2 x10^3/uL Monocytes # (Auto) 0.5 x10^3/uL Eosinophils # (Auto) 0.2 x10^3/uL Basophils # (Auto) 0.1 x10^3/uL Sodium Level 143 mmol/L Potassium Level 3.9 mmol/L Chloride Level 106 mmol/L Carbon Dioxide Level 28 mmol/L Anion Gap 9 Blood Urea Nitrogen 12 mg/dL Creatinine 0.9 mg/dL Estimated GFR (Cockcroft-Gault) 67.1 BUN/Creatinine Ratio 13 Glucose Level 174 mg/dL Calcium Level 9.0 mg/dL Total Bilirubin 0.4 mg/dL Aspartate Amino Transf (AST/SGOT) 19 U/L Alanine Aminotransferase (ALT/SGPT) 32 U/L Alkaline Phosphatase 113 U/L Troponin I Quantitative < 0.017 ng/mL Total Protein 7.5 g/dL Albumin 3.7 g/dL Albumin/Globulin Ratio 1.0 Current Medications Medications (Trade) Dose Ordered Sig/Poncho Route PRN Reason Start Time Stop Time Status Last Admin Dose Admin Acetaminophen (Tylenol) 1,000 mg 1X ONCE PO 02/23/21 17:45 02/23/21 17:46 DC 02/23/21 18:13 Aspirin (Aspirin Chewable) 162 mg 1X ONCE PO 02/23/21 17:45 02/23/21 17:50 DC 02/23/21 18:12 Vital Signs: Vital Signs Date Time Temp Pulse Resp B/P (MAP) Pulse Ox O2 Delivery O2 Flow Rate FiO2 02/23/21 11:10 98.1 76 20 118/62 (80) 95 Room Air 98.1 Vital Signs Date Time Temp Pulse Resp B/P (MAP) Pulse Ox O2 Delivery O2 Flow Rate FiO2 02/23/21 18:41 79 121/80 (94) 79 Room Air 02/23/21 16:15 14 02/23/21 11:10 98.1 98.1 (JONI ISAACS DO) EKG: EKG: [] (YAAKOV SIDDIQUI DO) EKG: EKG ordered and interpreted by myself at 1829 hrs. as sinus rhythm at 80 bpm, prolonged QTC at 507 otherwise unremarkable intervals, left axis deviation, no obvious ischemic findings, no STEMI (JONI ISAACS DO) Radiology/Procedures: Radiology/Procedures: IMAGING REPORT Signed PATIENT: NISHANT ESTRADA ACCOUNT: [id number] : 1975 LOCATION: ER AGE: 45 SEX: F EXAM STATUS: REG ER ORD. PHYSICIAN: YAAKOV SIDDIQUI DO REASON: COUGH PROCEDURE: PORTABLE CHEST 1V EXAM: Chest, single view. HISTORY: Cough. COMPARISON: 01/12/2019 FINDINGS: A frontal view of the chest obtained. There is no infiltrate, pleural effusion or pneumothorax. The heart is normal in size. IMPRESSION: No acute pulmonary finding. Electronically signed by: Janine Jesus MD (02/23/2021 2:41 PM) [facility] DICTATED and SIGNED BY: JANINE JESUS MD DATE: 02/23/21 [id number] (YAAKOV SIDDIQUI DO) Radiology/Procedures: EXAM: Chest, single view. HISTORY: Cough. COMPARISON: 01/12/2019 FINDINGS: A frontal view of the chest obtained. There is no infiltrate, pleural effusion or pneumothorax. The heart is normal in size. IMPRESSION: No acute pulmonary finding. Electronically signed by: Janine Jesus MD (02/23/2021 2:41 PM) [facility] (JONI ISAACS DO) Course & Med Decision Making: Course & Med Decision Making Pertinent Labs and Imaging studies reviewed. (See chart for details) [] (YAAKOV SIDDIQUI DO) Course & Med Decision Making I assumed care of patient after comprehensive signout from off going physician Patient PUI for Covid given URI-like symptoms and pending chest pain work-up due to several days of nonspecific chest pressure. I saw patient and repeated certain aspects of history and physical exam that were nonconcerning for emerge nt or surgical findings Reviewed entirety of ER work-up that was grossly nonconcerning with patient. I discussed heart score, PERC etc. with patient. Low risk for blood clot/pulmonary embolism and/or adverse cardiac event. Discussed most likely diagnosis of URI and PUI Covid Joint decision made to discharge home with self quarantine protocol and close PCP follow-up when appropriate for further outpatient diagnostic work-up. I did mention this might be an acute presentation more concerning pathology and so, close outpatient follow-up was advised when safe to do so Strict return precautions were discussed with good understanding by patient, all questions and concerns addressed prior to ER departure (JONI ISAACS DO) Brent Disclaimer: Brent Disclaimer: This electronic medical record was generated, in whole or in part, using a voice recognition dictation system. (YAAKOV SIDDIQUI DO) Departure Departure Impression: Primary Impression: Person under investigation for COVID-19 Additional Impressions: Viral syndrome Migraine Disposition: 01 HOME / SELF CARE / HOMELESS Condition: STABLE Referrals: UNKNOWN PCP NAME (PCP) Patient Instructions: Viral Syndrome Additional Instructions: You were seen for a constellation of symptoms that are concerning for possible infection with COVID-19. Your physical exam was reassuring. Your chest x-ray and comprehensive ER work-up was normal. We tested you for COVID-19 but this test does not come back for 1 to 2 days. In the meantime you need to quarantine yourself at home away from all other individuals, especially those who are elderly or have any other chronic health issues or an immunocompromised status. You should return to the ED if you develop worsening cough, shortness of breath, chest pain, or any other new or concerning symptoms. Alternate Tylenol and ibuprofen as needed for body aches and pain. If your test does come back positive you need to quarantine yourself for 10 days until symptom-free. You should make sure to drink plenty of fluids and get plenty of rest. YAAKOV SIDDIQUI DO February 23, 2021 16:21 JONI ISAACS DO February 23, 2021 20:17
[2021-02-23] MEDS ORDERED: ACETAMINOPHEN 500 MG TABLET PO ONE (17:45)
[2021-02-23] MEDS ORDERED: ASPIRIN CHEWABLE 81 MG TABLET. PO ONE (17:45)
[2021-02-23 18:45] LABS: BASO # 0.1 x10^3/uL (0.0-0.2); BASO % 1 % (0-3); EOS # 0.2 x10^3/uL (0.0-0.7); EOS % 3 % (0-3); LYMPH # 3.2 x10^3/uL (1.0-4.8); LYMPH % 40 % (24-48); MEAN CORPUSCULAR HEMOGLOBIN 29 pg (25-35); MEAN CORPUSCULAR HGB CONC 34 g/dL (31-37); MEAN CORPUSCULAR VOLUME 85 fL (79-100); MONO # 0.5 x10^3/uL (0.0-1.1); MONO % 7 % (0-9); NEUT # 3.8 x10^3/uL (1.8-7.7); NEUT % 49 % (31-73); PLATELET COUNT 248 x10^3/uL (140-400); RED BLOOD COUNT 5.16 x10^6/uL (3.50-5.40); RED CELL DISTRIBUTION WIDTH 13.8 % (11.5-14.5); WHITE BLOOD COUNT 7.9 x10^3/uL (4.0-11.0)
[2021-02-23 18:56] LABS: CREATININE 0.9 mg/dL (0.6-1.0); GFR 67.1; POTASSIUM 3.9 mmol/L (3.5-5.1)
[2021-02-23 19:02] LABS: ALBUMIN 3.7 g/dL (3.4-5.0); TOTAL BILIRUBIN 0.4 mg/dL (0.2-1.0); TOTAL PROTEIN 7.5 g/dL (6.4-8.2)
[2021-02-23 19:40] VITALS: BP 128/77
--- NOTE | 2021-02-24 01:17 | EKG ---
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
--- NOTE | 2021-02-24 13:34 | NUR ---
IP: Informed pt of negative COVID results. Pt verbalized understanding.
== END 2021-02-23 20:34 | disposition home or self-care (01) ==
LOC: ER 10:15
DX: B34.9 Viral infection, unspecified (principal); Z20.822 Contact with and (suspected) exposure to COVID-19; G43.909 Migraine, unspecified, not intractable, without status migrainosus
CPT/HCPCS: 36415; 71045; 80053; 82962; 84484; 85025; 87070; 87880; 93005; 99285; U0003; U0005

== ENCOUNTER 2021-07-20 13:00 | Emergency (ER) | payer OTHER ==
[~2021-07-20] VITALS: Ht 162.6 cm; Wt 111.0 kg
--- NOTE | 2021-07-20 15:29 | PHYS DOC ---
Past Medical History Past Medical History: Anxiety, Asthma, Depression, Diabetes-Type II, GERD, High Cholesterol, Hypertension Additional Past Medical Histor: ovarian cyst,mitral prolapse,PTSD, PANIC ATTACKS,PE'S, RLS, cirrhosis Past Surgical History: Hysterectomy Additional Past Surgical Histo: KIDNEY STONE REMOVAL 01/04 Smoking Status: Never Smoker Alcohol Use: None Drug Use: None General Adult EDM: Chief Complaint: FLANK PAIN HPI: HPI: Patient is a 45 year old female with history of diabetes type 2, hypertension, high cholesterol, kidney stones, who presents to the ED today complaining of 8 out of 10 right flank pain, symptoms began 3 days ago. Patient denies any hematuria, urgency, frequency or dysuria. Denies anything specifically exacerbating or relieving her pain. Describes the pain as sharp Review of Systems: Review of Systems: Constitutional: Denies fever or chills. [] Eyes: Denies change in visual acuity. [] HENT: Denies nasal congestion or sore throat. [] Respiratory: Denies cough or shortness of breath. [] Cardiovascular: Denies chest pain or edema. [] GI: Denies abdominal pain, nausea, vomiting, bloody stools or diarrhea. [] : Reports right flank pain. Denies dysuria. [] Musculoskeletal: Denies back pain or joint pain. [] Integument: Denies rash. [] Neurologic: Denies headache, focal weakness or sensory changes. [] Psychiatric: Denies depression or anxiety. [] Heart Score: C/O Chest Pain: N/A Risk Factors: Risk Factors: DM, Current or recent (<one month) smoker, HTN, HLP, family history of CAD, obesity. Risk Scores: Score 0 - 3: 2.5% MACE over next 6 weeks - Discharge Home Score 4 - 6: 20.3% MACE over next 6 weeks - Admit for Clinical Observation Score 7 - 10: 72.7% MACE over next 6 weeks - Early Invasive Strategies Current Medications: Current Medications Medications (Trade) Dose Ordered Sig/Poncho Start Time Stop Time Status Last Admin Dose Admin Fentanyl Citrate (Fentanyl 2ml Vial) 50 mcg 1X ONCE 07/20/21 15:30 07/20/21 15:31 UNV Ondansetron HCl (Zofran) 4 mg 1X ONCE 07/20/21 15:30 07/20/21 15:31 UNV Sodium Chloride 1,000 ml @ 1,000 mls/hr 1X ONCE 07/20/21 15:30 07/20/21 16:29 UNV Allergies: Allergies: Allergies Coded Allergies Type Severity Reaction Last Updated Verified Sulfa (Sulfonamide Antibiotics) Allergy Severe SWELLING OF MOUTH AND HIVES 11/04/15 Yes shellfish derived Allergy Severe MOUTH SWELLING AND HIVES 11/04/15 Yes doxycycline Allergy Intermediate HIVES 11/04/15 Yes duloxetine Adverse Reaction Intermediate HYPERTENSION/TACHYCARDIA 11/04/15 Yes hydromorphone Adverse Reaction Intermediate NAUSEA AND VOMITING 11/04/15 Yes imipramine Adverse Reaction Intermediate IRREGULAR HEART BEAT 11/04/15 Yes metformin Adverse Reaction Intermediate ACIDOSIS 02/27/16 Yes nalbuphine Adverse Reaction Intermediate EPISTAXIS 11/04/15 Yes propoxyphene Adverse Reaction Intermediate NAUSEA AND VOMITING 11/04/15 Yes dabigatran etexilate Adverse Reaction Mild Nausea 08/27/16 Yes rivaroxaban Adverse Reaction Mild Nausea and Vomiting 08/27/16 Yes warfarin Adverse Reaction Mild Nausea 08/27/16 Yes Physical Exam: PE: Constitutional: Well developed, well nourished, no acute distress, non-toxic appearance. [] HENT: Normocephalic, atraumatic, bilateral external ears normal, oropharynx moist, no oral exudates, nose normal. [] Eyes: PERRLA, EOMI, conjunctiva normal, no discharge. [] Neck: Normal range of motion, no tenderness, supple, no stridor. [] Cardiovascular:Heart rate regular rhythm, no murmur [] Lungs & Thorax: Bilateral breath sounds clear to auscultation [] Abdomen: Bowel sounds normal, soft, no tenderness, no masses, no pulsatile masses. [] Skin: Warm, dry, no erythema, no rash. [] Back: No tenderness, mild right CVA tenderness. [] Extremities: No tenderness, no cyanosis, no clubbing, ROM intact, no edema. [] Neurologic: Alert and oriented X 3, normal motor function, normal sensory function, no focal deficits noted. [] Psychologic: Affect normal, judgement normal, mood normal. [] Current Patient Data: Labs: Laboratory Tests Test 07/20/21 15:22 POC Urine HCG, Qualitative Hcg negative (Negative) EKG: EKG: [] Radiology/Procedures: Radiology/Procedures: []PROCEDURE: CT ABDOMEN PELVIS WO CONTRAST CT of the abdomen and pelvis without contrast. 07/20/2021 3:51 PM Indication: Reason: right flank pain hx of kidney stones / Spl. Instructions: / History: Comparison Study: CT of the abdomen and pelvis without contrast January 10, 2016. Technique: Multidetector CT imaging of the abdomen pelvis is obtained without administration of contrast. Findings: The visualized bilateral lung bases are clear. The liver, spleen, bilateral adrenal glands, and pancreas have a normal nonc ontrast enhanced appearance. The gallbladder is surgically absent. Minimal nonspecific perinephric stranding noted. The kidneys are otherwise unremarkable in appearance. There is no evidence of nephrolithiasis or obstructive uropathy. The ureters are normal in course and caliber. The bladder is grossly unremarkable. There is no significant free fluid or free air in the abdomen or p jenny. There is no evidence of bowel obstruction or significant inflamatory change. The appendix is well visualized and grossly normal. There is no acute osseous abnormality identified. Impression: 1. No evidence of acute intra-abdominal abnormality 2. No evidence of nephrolithiasis or acute obstructive uropathy. CT DOSING PQRS STATEMENT: One or more of the following individualized dose reduction techniques were utilized for this examination: 1. Automated exposure control 2. Adjustment of the mA and/or kV according to patient size 3. Use of iterative reconstruction technique Electronically signed by: Leonard Trinh MD (07/20/2021 4:18 PM) [id number] DICTATED and SIGNED BY: LEONARD TRINH MD DATE: 07/20/21 [id number] Course & Med Decision Making: Course & Med Decision Making Pertinent Labs and Imaging studies reviewed. (See chart for details) This a 45-year-old female patient presented to the ED today with right flank pain for 3 days. Patient states she has history of kidney stones and believes she has one right now. UA negative for infection. CT of the abdomen and pelvis is negative for kidney stones. Discharge to home Brent Disclaimer: Brent Disclaimer: This electronic medical record was generated, in whole or in part, using a voice recognition dictation system. Departure Departure Impression: Primary Impression: Flank pain Disposition: HOME / SELF CARE / HOMELESS Condition: STABLE Referrals: UNKNOWN PCP NAME (PCP) Follow-up with your primary care doctor in 1 week Patient Instructions: Flank Pain, [id number] Additional Instructions: You were evaluated in the emergency room for flank pain, your CT of the abdomen and pelvis is negative for kidney stones. Your Urine is negative for infection. We encourage you to follow-up with your primary care doctor as soon as you can Scripts Ondansetron (ONDANSETRON ODT) 4 Mg Tab.rapdis 1 TAB PO PRN Q6-8HRS, #16 TAB Prov: ZE SANTIAGO APRN 07/20/21 Cyclobenzaprine Hcl (CYCLOBENZAPRINE HCL) 10 Mg Tablet 1 TAB PO TID, #30 TAB Prov: ZE SANTIAGO APRN 07/20/21 ZE SANTIAGO APRN Jul 20, 2021 15:29
[2021-07-20] MEDS ORDERED: fentaNYL PF VIAL 100 MCG/2 ML VIAL IVP ONE (15:30)
[2021-07-20] MEDS ORDERED: ONDANSETRON PF 4 MG/2 ML VIAL. IVP ONE (15:30)
[2021-07-20] MEDS ORDERED: IV NORMAL SALINE 1000ML BAG 1,000 ML IV ONE (15:30)
[2021-07-20 15:39] LABS: BILIRUBIN,URINE SMALL (NEG); CLARITY,URINE CLEAR; COLOR,URINE AMBER; NITRITE,URINE NEGATIVE (NEG); PROTEIN,URINE NEGATIVE (NEG-TRACE); UROBILINOGEN,URINE 0.2 mg/dL (0.2 mg/dL)
[2021-07-20 15:43] LABS: AMPHETAMINE/METHAMPHETAMINE NEG (NEG); BARBITURATES NEG (NEG); BENZODIAZEPINES NEG (NEG); CANNABINOIDS NEG (NEG); COCAINE NEG (NEG); METHADONE NEG (NEG); OPIATES NEG (NEG); PHENCYCLIDINE NEG (NEG)
[2021-07-20 15:50] LABS: BACTERIA,URINE 0 /HPF (0-FEW); RBC,URINE 0 /HPF (0-2); WBC,URINE OCC /HPF (0-4)
[2021-07-20 16:10] VITALS: BP 120/77
--- NOTE | 2021-07-20 16:20 | RAD ---
CT of the abdomen and pelvis without contrast. 07/20/2021 3:51 PM Indication: Reason: right flank pain hx of kidney stones / Spl. Instructions: / History: Comparison Study: CT of the abdomen and pelvis without contrast January 10, 2016. Technique: Multidetector CT imaging of the abdomen pelvis is obtained without administration of contr ast. Findings: The visualized bilateral lung bases are clear. The liver, spleen, bilateral adrenal glands, and pancreas have a normal noncontrast enhanced appear ance. The gallbladder is surgically absent. Minimal nonspecific perinephric stranding noted. The kidn eys are otherwise unremarkable in appearance. There is no evidence of nephrolithiasis or obstructive uropathy. The ureters are normal in course and caliber. The bladder is grossly unremarkable. There is no significant free fluid or free air in the abdomen or pelvis. There is no evidence of bowel obstru ction or significant inflamatory change. The appendix is well visualized and grossly normal. There is no acute osseous abnormality identified. Impression: 1. No evidence of acute intra-abdominal abnormality 2. No evidence of nephrolithiasis or acute obstructive uropathy. CT DOSING PQRS STATEMENT: One or more of the following individualized dose reduction techniques were utilized for this examinat ion: 1. Automated exposure control 2. Adjustment of the mA and/or kV according to patient size 3. Use of iterative reconstruction technique Electronically signed by: Leonard Crain MD (07/20/2021 4:18 PM) [id number]
[2021-07-20] MEDS ORDERED: CYCL10TA2 PO (16:32)
[2021-07-20] MEDS ORDERED: ONDA4TAB12 PO (16:34)
[2021-07-20] MEDS: HYDROcodone/APAP 5/325MG 1 TAB TABLET PO ONE ×2 (17:03→17:08)
[2021-07-20] MEDS ORDERED: ONDANSETRON ODT 4 MG TAB.RAPDIS. PO ONE (17:15)
== END 2021-07-20 17:10 | disposition home or self-care (01) ==
LOC: ER 13:00
DX: R10.9 Unspecified abdominal pain (principal); J45.909 Unspecified asthma, uncomplicated; E11.9 Type 2 diabetes mellitus without complications; K21.9 Gastro-esophageal reflux disease without esophagitis; E78.00 Pure hypercholesterolemia, unspecified; I10 Essential (primary) hypertension; Z90.710 Acquired absence of both cervix and uterus; Z88.1 Allergy status to other antibiotic agents; Z88.2 Allergy status to sulfonamides; Z91.013 Allergy to seafood; Z88.8 Allergy status to other drugs, medicaments and biological substances
CPT/HCPCS: 74176; 80307; 81001; 81025; 99284-25